=== PATIENT | female | born 1965 | race Caucasian/White ===

== ENCOUNTER 2016-10-13 10:39 | Emergency (ER) | payer OTHER ==
[~2016-10-13] VITALS: Ht 157.5 cm; Wt 80.0 kg
[~2016-10-13 10:39] MED LIST: ALBU0.086 INH; ALBU1AER INH; ALBU6.7H INH; ALPR-138 PO; PRED20 PO; SYMB80AE INH; SYMBICORT INH
[2016-10-13 10:51] VITALS: BP 167/111; PULSE 81; RESP 16; TEMP 98.8; O2SAT 98
[2016-10-13 11:06] LABS: BLOOD, URINE TRACE (NEG); GLUCOSE,URINE NEG (NEG); KETONE, URINE NEG (NEG); NITRITE,URINE NEG (NEG)
[2016-10-13 11:10] LABS: METHOD OF COLLECTION CLEAN CATCH
[2016-10-13 11:11] LABS: URINE COLOR YELLOW (YELLW/STRAW)
[2016-10-13 11:12] LABS: BACTERIA, URINE MOD /hpf; COMMENT (UR) CULTURE INDICATED; CULTURE IF INDICATED CULTURE INDICATED; SQUAMOUS EPITHELIAL CELL URINE > 8 /hpf (0-5)
[2016-10-13] MEDS ORDERED: FLUT1SPR5 EACH NARE (11:14)
[2016-10-13] MEDS ORDERED: THYROID MED (11:14)
[2016-10-13] MEDS ORDERED: HTN MED (11:14)
[2016-10-13] MEDS ORDERED: [UNRECOGNIZED DRUG - OTHER] (11:14)
[2016-10-13] MEDS ORDERED: MONT10TA2 PO (11:14)
[2016-10-13 11:34] VITALS: BP 171/103; PULSE 86; RESP 20; O2SAT 96
[2016-10-13 12:23] VITALS: BP 170/110; PULSE 81; RESP 20; O2SAT 96
[2016-10-13] MEDS ORDERED: KETOROLAC TROMETHAMINE 30 MG/ML (IVP) VIAL IVP ONE (12:45)
[2016-10-13 13:00] LABS: AUTOMATED NEUTROPHIL # 4.7 TH/MM3 (1.8-7.7); BASOPHIL % 0.7 % (0.0-2.0); EOSINOPHIL # 0.2 TH/MM3 (0-0.4); EOSINOPHIL % 2.8 % (0.0-4.0); HEMO FLAGS DIFF FINAL; LYMPH % 24.1 % (9.0-44.0); LYMPHOCYTE # 1.7 TH/MM3 (1.0-4.8); MEAN CORPUSCULAR HEMOGLOBIN 29.8 PG (27.0-34.0); MEAN CORPUSCULAR HGB CONC 34.3 % (32.0-36.0); MONO % 4.3 % (0.0-8.0); NEUT % 68.1 % (16.0-70.0); PLATELET COUNT 208 TH/MM3 (150-450); RED BLOOD COUNT 4.83 MIL/MM3 (4.00-5.30); RED CELL DISTRIBUTION WIDTH 12.6 % (11.6-17.2); WHITE BLOOD COUNT 6.9 TH/MM3 (4.0-11.0)
[2016-10-13 13:01] VITALS: O2SAT 99
[2016-10-13 13:09] LABS: CHLORIDE 106 MEQ/L (98-107); POTASSIUM 3.9 MEQ/L (3.5-5.1); SODIUM (NA) 141 MEQ/L (136-145)
--- NOTE | 2016-10-13 13:10 | PD ---
HPI Chief Complaint: Back/ Neck Pain or Injury Time Seen by Provider: 12:36 Travel History International Travel<30 days: No Contact w/Intl Traveler<30days: No Traveled to known affect area: No History of Present Illness HPI 51-year-old female complains of low back pain and left low quadrant abdominal pain. Patient states that she has history of chronic back pain however she has increasing low back pain for the past 2 weeks. Patient denies any recent injury. Patient denies dysuria or frequency. Patient denies any vaginal discharge or bleeding. Patient denies any focal weakness or numbness of extremity. Patient status post hysterectomy with multiple reconstruction surgery subsequently. Patient has history hypertension however did not take her blood pressure medications last night. PFSH Past Medical History Arthritis: No Asthma: Yes Autoimmune Disease: No Blood Disorders: No Anxiety: Yes Depression: No Heart Rhythm Problems: No Cancer: No Cardiovascular Problems: Yes (htn on meds) High Cholesterol: No Chemotherapy: No Chest Pain: No Congestive Heart Failure: No COPD: No Cerebrovascular Accident: No Diabetes: No Diminished Hearing: No Endocrine: No Gastrointestinal Disorders: No GERD: No Glaucoma: No Genitourinary: No Headaches: No Hepatitis: No Hiatal Hernia: No Hypertension: No Immune Disorder: No Kidney Stones: No Medical other: Yes (LEFT STENT REMOVAL 05/14/10) Musculoskeletal: Yes Neurologic: No Psychiatric: Yes Reproductive: No Respiratory: Yes (ASTHMA) Migraines: No Myocardial Infarction: No Radiation Therapy: No Renal Failure: No Seizures: No Sickle Cell Disease: No Sleep Apnea: No Thyroid Disease: No Ulcer: No ?: Not : 2 Para: 2 Tubal Ligation: Yes Past Surgical History Abdominal Surgery: No AICD: No Appendectomy: No Arteriovenous Shunt: No Cardiac Surgery: No Cholecystectomy: No Ear Surgery: No Endocrine Surgery: No Eye Surgery: No Genitourinary Surgery: Yes (NEPH TUBES, ureter re implantation bilat. ) Gynecologic Surgery: Yes (CYST REMOVED LEFT BREAST VAGINAL HYSTERECTOMY, TUGAL LIGATION) Hysterectomy: Yes Insulin Pump: No Joint Replacement: No Neurologic Surgery: No Oral Surgery: No Pacemaker: No Thoracic Surgery: No Other Surgery: Yes Social History Alcohol Use: Yes (OCCASIONAL BEERS) Tobacco Use: No Substance Use: No Allergies-Medications (Allergen,Severity, Reaction): Coded Allergies: Contrast Media (Verified Allergy, Unknown, 10/13/16) Reported Meds & Prescriptions Reported Meds & Active Scripts Active Reported Flonase Allergy Relief Nasal [place] (Fluticasone Nasal [place]) 50 Mcg/Act [place] Unknown Dose EACH NARE BID [Thyroid Med] Unknown Dose Singulair (Montelukast Sodium) 10 Mg Tab 10 Mg PO HS [Anuity] [Htn Med] Unknown Dose Review of Systems General / Constitutional: No: Fever Eyes: No: Visual changes HENT: No: Headaches Cardiovascular: No: Chest Pain or Discomfort Respiratory: No: Shortness of Breath Gastrointestinal: Positive: Abdominal Pain Genitourinary: No: Dysuria Musculoskeletal: No: Pain Skin: No Rash Neurologic: No: Weakness Psychiatric: No: Depression Endocrine: No: Polydipsia Hematologic/Lymphatic: No: Easy Bruising Physical Exam Narrative GENERAL: Well-nourished, well-developed patient. SKIN: Warm and dry. HEAD: Normocephalic. EYES: No scleral icterus. No injection or drainage. NECK: Supple, trachea midline. No JVD or lymphadenopathy. CARDIOVASCULAR: Regular rate and rhythm without murmurs, gallops, or rubs. RESPIRATORY: Breath sounds equal bilaterally. No accessory muscle use. GASTROINTESTINAL: Abdomen soft, nondistended. Patient has mild tenderness on palpation left lower quadrant of the abdomen. No rebound tenderness. No mass. MUSCULOSKELETAL: No cyanosis, or edema. BACK: Mild tenderness on palpation lower lumbar area, without obvious deformity. No CVA tenderness. Negative straight leg raising. Neurologic exam normal. Data Data Last Documented VS Vital Signs Date Time Temp Pulse Resp B/P Pulse Ox O2 Delivery O2 Flow Rate FiO2 10/13/16 14:32 69 18 159/93 98 10/13/16 10:51 98.8 Orders Urinalysis - C+S If Indicated (10/13/16 10:55) Urine Culture (10/13/16 11:00) Complete Blood Count With Diff (10/13/16 12:43) Comprehensive Metabolic Panel (10/13/16 12:43) Ct Abd/Pel W/O Iv Contrast (10/13/16 12:43) Iv Access Insert/Monitor (10/13/16 12:43) Ecg Monitoring (10/13/16 12:43) Oximetry (10/13/16 12:43) Ketorolac Inj (Toradol Inj) (10/13/16 12:45) Labs Laboratory Tests Test 10/13/16 10/13/16 11:00 12:50 Urine Collection Type CLEAN CATCH Urine Color YELLOW Urine Turbidity SLIGHT Urine pH 7.0 Urine Specific [place] 1.020 Urine Protein NEG mg/dL Urine Glucose (UA) NEG mg/dL Urine Ketones NEG mg/dL Urine Occult Blood TRACE Urine Nitrite NEG Urine Bilirubin NEG Urine Leukocyte Esterase SMALL Urine RBC 4-9 /hpf Urine WBC 20-24 /hpf Urine Squamous Epithelial > 8 /hpf Cells Urine Bacteria MOD /hpf Microscopic Urinalysis Comment CULTURE INDICATED Urine Collection Time 11:00 White Blood Count 6.9 TH/MM3 Red Blood Count 4.83 MIL/MM3 Hemoglobin 14.4 GM/DL Hematocrit 42.0 % Mean Corpuscular Volume 87.0 FL Mean Corpuscular Hemoglobin 29.8 PG Mean Corpuscular Hemoglobin 34.3 % Concent Red Cell Distribution Width 12.6 % Platelet Count 208 TH/MM3 Mean Platelet Volume 8.8 FL Neutrophils (%) (Auto) 68.1 % Lymphocytes (%) (Auto) 24.1 % Monocytes (%) (Auto) 4.3 % Eosinophils (%) (Auto) 2.8 % Basophils (%) (Auto) 0.7 % Neutrophils # (Auto) 4.7 TH/MM3 Lymphocytes # (Auto) 1.7 TH/MM3 Monocytes # (Auto) 0.3 TH/MM3 Eosinophils # (Auto) 0.2 TH/MM3 Basophils # (Auto) 0.0 TH/MM3 CBC Comment DIFF FINAL Differential Comment Sodium Level 141 MEQ/L Potassium Level 3.9 MEQ/L Chloride Level 106 MEQ/L Carbon Dioxide Level 28.3 MEQ/L Anion Gap 7 MEQ/L Blood Urea Nitrogen 13 MG/DL Creatinine 0.93 MG/DL Estimat Glomerular Filtration 63 ML/MIN Rate Random Glucose 90 MG/DL Calcium Level 8.5 MG/DL Total Bilirubin 0.3 MG/DL Aspartate Amino Transf 15 U/L (AST/SGOT) Alanine Aminotransferase 23 U/L (ALT/SGPT) Alkaline Phosphatase 61 U/L Total Protein 7.6 GM/DL Albumin 3.5 GM/DL [facility] Medical Decision Making Medical Screen Exam Complete: Yes Emergency Medical Condition: Yes Interpretation(s) 1453 PM. CBC within normal limit. CMP within normal limit. UA positive with WBC and bacteria. 1509 PM. Last Impressions Abdomen/Pelvis CT 10/13/16 1243 Signed Impressions: Service Date/Time: Thursday, October 13, 2016 13:55 - CONCLUSION: 1. Mild hydronephrosis on the left with two tiny calcified proximal ureter calculi measuring 3 and 2 mm raising the possibility of mild obstructive uropathy. 2. Multiple calcified non-obstructing left renal calculi with the largest measuring 12 mm in the lower pole. 3. Cortical scarring within the upper pole of the left kidney. 4. The left ureter appears to traverse diagonally towards the midline raising the possibility of reimplantation in the region of the dome of the bladder. Clinical correlation is recommended. 5. Uncomplicated colonic diverticulosis. 6. Mild hepatomegaly. 7. Mild scoliosis and degenerative changes involving the lumbar spine. 8. Grade I anterolisthesis of L5 in relation to S1 is noted with bilateral pars defects noted. 9. Small midline ventral abdominal wall hernia containing only fat. Sahil Samson MD Differential Diagnosis Differential diagnosis including acute exacerbation of back pain, UTI, pyelonephritis, nephrolithiasis, colitis. Narrative Course 51-year-old female with left low quadrant abdominal pain and low back pain. Diagnosis Primary Impression: Nephrolithiasis Additional Impression: UTI (urinary tract infection) Qualified Code: N30.00 - Acute cystitis without hematuria Patient Instructions: General Instructions Additional Instructions: Take medications as directed. Follow-up with urologist and personal physician. Return if intractable pain, fever, persistent vomiting. Med/Other Pt SpecificInfo: Prescription(s) given Scripts Hydrocodone-Acetaminophen ([place])5-325 mg Tab1 Tab PO Q6H PRN (PAIN) #20 TAB Ref 0 Prov:Stephen Ellison MD 10/13/16 Tamsulosin (Flomax)0.4 Mg Cap0.4 Mg PO HS #10 CAP Ref 0 Prov:Stephen Ellison MD 10/13/16 Sulfamethoxazole-Trimethoprim (Bactrim DS)800-160 Mg Tab1 Tab PO BID #14 TAB Prov:Stephen Ellison MD 10/13/16 Disposition: 01 DISCHARGE HOME Condition: Stable Stephen Ellison MD Oct 13, 2016 13:09
[2016-10-13 13:13] LABS: ANION GAP 7 MEQ/L (5-15); BICARBONATE 28.3 MEQ/L (21.0-32.0); BLOOD UREA NITROGEN 13 MG/DL (7-18)
[2016-10-13 13:16] LABS: ALT (GPT) 23 U/L (10-53); AST (GOT) 15 U/L (15-37); GLOMERULAR FILTRATION RATE 63 ML/MIN (>89)
[2016-10-13 13:18] LABS: TOTAL BILIRUBIN ADULT 0.3 MG/DL (0.2-1.0)
[2016-10-13 13:19] LABS: ALKALINE PHOSPHATASE 61 U/L (45-117)
[2016-10-13 13:24] VITALS: BP 183/99; PULSE 78; RESP 20; O2SAT 99
[2016-10-13 14:32] VITALS: BP 159/93; PULSE 69; RESP 18; O2SAT 98
--- NOTE | 2016-10-13 14:46 | RADHPO ---
EXAM DATE/TIME: 10/13/2016 13:55 [facility] COMPARISON: No previous studies available for comparison. INDICATIONS : Left flank pain. ORAL CONTRAST: No oral contrast ingested. RADIATION DOSE: 24.19 CTDIvol (mGy) MEDICAL HISTORY : Hypertension. SURGICAL HISTORY : Hysterectomy. ENCOUNTER: Initial ACUITY: 2 weeks PAIN SCALE: 3/10 LOCATION: Left flank TECHNIQUE: Volumetric scanning of the abdomen and pelvis was performed. Using automated exposure control and ad justment of the mA and/or kV according to patient size, radiation dose was kept as low as reasonably achievable to obtain optimal diagnostic quality images. FINDINGS: There is evidence of several calcified non-obstructing left renal calculi with the largest measuring 12 mm in the lower pole. Cortical scarring is noted involving the left upper pole. There is mild hy dronephrosis on the left as well as two tiny calcified left proximal ureteral calculi measuring 3 and 2 mm raising the possibility of mild obstructive uropathy on the left. The left ureter appears to t raverse diagonally towards the midline raising the possibility of reimplantation of the left ureter i n the region of the bladder dome. Clinical correlation is recommended. Evaluation of the solid orga ns of the abdomen is limited by the lack of intravenous contrast. There is some mild hepatomegaly. There is a calcification within the lateral dome of the liver consistent with probable granulomatous change. Uncomplicated colonic diverticulosis is noted. The appendix is normal. The urinary bladder is unremarkable. There is a ventral abdominal wall hernia which contains only fat in the midline. Mild scoliosis and degenerative changes are noted involving the lumbar spine. Grade I anterolisthesi s of L5 in relation to S1 is noted with bilateral pars defects noted. CONCLUSION: 1. Mild hydronephrosis on the left with two tiny calcified proximal ureter calculi measuring 3 and 2 mm raising the possibility of mild obstructive uropathy. 2. Multiple calcified non-obstructing left renal calculi with the largest measuring 12 mm in the lowe r pole. 3. Cortical scarring within the upper pole of the left kidney. 4. The left ureter appears to traverse diagonally towards the midline raising the possibility of reim plantation in the region of the dome of the bladder. Clinical correlation is recommended. 5. Uncomplicated colonic diverticulosis. 6. Mild hepatomegaly. 7. Mild scoliosis and degenerative changes involving the lumbar spine. 8. Grade I anterolisthesis of L5 in relation to S1 is noted with bilateral pars defects noted. 9. Small midline ventral abdominal wall hernia containing only fat. Sahil Samson MD on October 13, 2016 at 14:06 Board Certified Radiologist. This report was verified electronically.
[2016-10-13] MEDS ORDERED: BACT800T5 PO (15:12)
[2016-10-13] MEDS ORDERED: TAMS5CAP PO (15:12)
[2016-10-13] MEDS ORDERED: NORC5TAB PO (15:12)
== END 2016-10-13 15:31 | disposition home or self-care (01) ==
LOC: PHED 10:39
DX: N20.0 Calculus of kidney (principal); N39.0 Urinary tract infection, site not specified; I10 Essential (primary) hypertension; F41.9 Anxiety disorder, unspecified
CPT/HCPCS: 74176; 80053; 81001; 85025; 87077; 87086; 87186; 96374; 99284; J1885

== ENCOUNTER 2017-04-09 11:28 | Emergency (ER) | payer OTHER ==
[~2017-04-09] VITALS: Ht 157.5 cm; Wt 82.0 kg
[~2017-04-09 11:28] MED LIST changes: -ALBU0.086 INH; -ALBU1AER INH; -ALBU6.7H INH; -ALPR-138 PO; +BACT800T5 PO; +FLUT1SPR5 EACH NARE; +HTN MED; +MONT10TA2 PO; +NORC5TAB PO; -PRED20 PO; -SYMB80AE INH; -SYMBICORT INH; +TAMS5CAP PO; +THYROID MED; +[UNRECOGNIZED DRUG - OTHER]
[2017-04-09] MEDS ORDERED: LEVO50TA4 PO (11:42)
[2017-04-09] MEDS ORDERED: FLUT1INH3 INH (11:42)
[2017-04-09] MEDS ORDERED: LOSA50TA PO (11:42)
[2017-04-09] MEDS ORDERED: VENTAER INH (11:42)
[2017-04-09 11:43] VITALS: BP 171/105; PULSE 77; RESP 16; TEMP 98; O2SAT 98
[2017-04-09] MEDS ORDERED: ONDANSETRON HCL 4 MG/2 ML VIAL IV PUSH ONE (12:00)
[2017-04-09] MEDS ORDERED: MORPHINE SULFATE 4 MG/ML INJ IV PUSH ONE (12:00)
--- NOTE | 2017-04-09 12:21 | PD ---
HPI Chief Complaint: Hip Injury Time Seen by Provider: 12:00 Travel History International Travel<30 days: No Contact w/Intl Traveler<30days: No Traveled to known affect area: No History of Present Illness HPI 52-year-old female presents for evaluation of right leg pain. Prior to arrival she slipped in her garage and fell, landing on her torso. No loss of consciousness or head trauma. She has been having pain in her right thigh since then. The pain is an aching pain which is constant, worse with any sort of movement of the right thigh. She received or feeding prior to arrival. Denies any injury to the torso, upper extremities, neck or back. She has no other complaints at this time. PFSH Past Medical History Arthritis: No Asthma: Yes Autoimmune Disease: No Blood Disorders: No Anxiety: Yes Depression: No Heart Rhythm Problems: No Cancer: No Cardiovascular Problems: Yes (htn on meds) High Cholesterol: No Chemotherapy: No Chest Pain: No Congestive Heart Failure: No COPD: No Cerebrovascular Accident: No Diabetes: No Diminished Hearing: No Endocrine: No Gastrointestinal Disorders: No GERD: No Glaucoma: No Genitourinary: No Headaches: No Hepatitis: No Hiatal Hernia: No Hypertension: No Immune Disorder: No Kidney Stones: No Medical other: Yes (LEFT STENT REMOVAL 05/14/10) Musculoskeletal: Yes Neurologic: No Psychiatric: Yes Reproductive: No Respiratory: Yes Migraines: No Myocardial Infarction: No Radiation Therapy: No Renal Failure: No Seizures: No Sickle Cell Disease: No Sleep Apnea: No Thyroid Disease: No Ulcer: No Tetanus Vaccination: > 5 Years Influenza Vaccination: No ?: Not : 2 Para: 2 Tubal Ligation: Yes Past Surgical History Abdominal Surgery: No AICD: No Appendectomy: No Arteriovenous Shunt: No Cardiac Surgery: No Cholecystectomy: No Ear Surgery: No Endocrine Surgery: No Eye Surgery: No Genitourinary Surgery: Yes (NEPH TUBES, ureter re implantation bilat. ) Gynecologic Surgery: Yes (CYST REMOVED LEFT BREAST VAGINAL HYSTERECTOMY, TUGAL LIGATION) Hysterectomy: Yes Insulin Pump: No Joint Replacement: No Neurologic Surgery: No Oral Surgery: No Pacemaker: No Thoracic Surgery: No Other Surgery: Yes Social History Alcohol Use: Yes (OCCASIONAL BEERS) Tobacco Use: No Substance Use: No Allergies-Medications (Allergen,Severity, Reaction): Coded Allergies: Contrast Media (Verified Allergy, Unknown, 04/09/17) Reported Meds & Prescriptions Reported Meds & Active Scripts Active Baclofen 10 Mg Tab 10 Mg PO Q8HR PRN 7 Days Lortab (Hydrocodone-Acetaminophen) 5-325 Mg Tab 1 Tab PO Q6H PRN Ibuprofen 800 Mg Tab 800 Mg PO Q6HR PRN Reported Ventolin Hfa 18 GM Inh (Albuterol Sulfate) 90 Mcg/Act Aer 2 Puff INH Q4-6H PRN Arnuity Ellipta (Fluticasone Furoate (Inhalatio) 100 Mcg/Act Inh 1 Puff INH HS Levothyroxine (Levothyroxine Sodium) 50 Mcg Tab 50 Mcg PO DAILY Losartan (Losartan Potassium) 50 Mg Tab 50 Mg PO DAILY Flonase Nasal [place] (Fluticasone Nasal [place]) 50 Mcg/Act [place] Unknown Dose EACH NARE BID Review of Systems Except as stated in HPI: all other systems reviewed are Neg Physical Exam Narrative GENERAL: Well-developed well-nourished female who appears uncomfortable on initial examination. SKIN: Warm and dry. There is no obvious bruising or soft tissue swelling on initial examination. HEAD: Atraumatic. Normocephalic. EYES: Pupils equal and round. No scleral icterus. No injection or drainage. ENT: No nasal bleeding or discharge. Mucous membranes pink and moist. NECK: Trachea midline. No JVD. CARDIOVASCULAR: Regular rate and rhythm. No murmur appreciated. RESPIRATORY: No accessory muscle use. Clear to auscultation. Breath sounds equal bilaterally. GASTROINTESTINAL: Abdomen soft, non-tender, nondistended. Hepatic and splenic margins not palpable. MUSCULOSKELETAL: No obvious deformities. There is no rotation or shortening of the right leg. She is tender to palpation in the right thigh diffusely. There is no soft tissue swelling, the compartments are soft. She has pain with any sort of movement of the right hip or knee. She has no tenderness to palpation to the right calf or tibia or ankle or foot. NEUROLOGICAL: Awake and alert. No obvious cranial nerve deficits. Motor grossly within normal limits. Normal speech. PSYCHIATRIC: Appropriate mood and affect; insight and judgment normal. Data Data Last Documented VS Vital Signs Date Time Temp Pulse Resp B/P Pulse Ox O2 Delivery O2 Flow Rate FiO2 04/09/17 11:50 Room Air 04/09/17 11:43 98.0 77 16 171/105 98 Orders Femur (Ap & Lat/2vws) (04/09/17 ) Pelvis, Ap Only (Routine) (04/09/17 ) Complete Blood Count With Diff (04/09/17 11:56) Basic Metabolic Panel (Bmp) (04/09/17 11:56) Act Partial Throm Time (Ptt) (04/09/17 11:56) Prothrombin Time / Inr (Pt) (04/09/17 11:56) Morphine Inj (Morphine Inj) (04/09/17 12:00) Ondansetron Inj (Zofran Inj) (04/09/17 12:00) Ketorolac Inj (Toradol Inj) (04/09/17 13:00) Ct Femur W/O Iv Contrast (04/09/17 ) Orphenadrine Inj (Norflex Inj) (04/09/17 13:15) Crutches (04/09/17 14:31) Labs Laboratory Tests Test 04/09/17 12:00 White Blood Count 6.7 TH/MM3 Red Blood Count 4.78 MIL/MM3 Hemoglobin 13.9 GM/DL Hematocrit 42.4 % Mean Corpuscular Volume 88.6 FL Mean Corpuscular Hemoglobin 29.0 PG Mean Corpuscular Hemoglobin 32.7 % Concent Red Cell Distribution Width 13.9 % Platelet Count 194 TH/MM3 Mean Platelet Volume 9.6 FL Neutrophils (%) (Auto) 72.3 % Lymphocytes (%) (Auto) 19.0 % Monocytes (%) (Auto) 6.6 % Eosinophils (%) (Auto) 1.5 % Basophils (%) (Auto) 0.6 % Neutrophils # (Auto) 4.8 TH/MM3 Lymphocytes # (Auto) 1.3 TH/MM3 Monocytes # (Auto) 0.4 TH/MM3 Eosinophils # (Auto) 0.1 TH/MM3 Basophils # (Auto) 0.0 TH/MM3 CBC Comment DIFF FINAL Differential Comment Prothrombin Time 10.0 SEC Prothromb Time International 0.9 RATIO Ratio Activated Partial 25.9 SEC Thromboplast Time Sodium Level 138 MEQ/L Potassium Level 3.8 MEQ/L Chloride Level 106 MEQ/L Carbon Dioxide Level 24.8 MEQ/L Anion Gap 7 MEQ/L Blood Urea Nitrogen 14 MG/DL Creatinine 0.79 MG/DL Estimat Glomerular Filtration 76 ML/MIN Rate Random Glucose 96 MG/DL Calcium Level 8.5 MG/DL [facility] Medical Decision Making Medical Screen Exam Complete: Yes Emergency Medical Condition: Yes Medical Record Reviewed: Yes Differential Diagnosis Right leg strain, contusion, femur fracture, compartment syndrome Narrative Course Plan is for x-ray imaging of the femur, pelvis. She'll be given additional pain medication. The patient's x-ray imaging is negative. I attempted to in with the patient however she was unable to even sit on the edge of the bed without severe pain in her posterior medial right thigh. This was after 2 doses of morphine. She will be given Toradol and Norflex as well. CT imaging reveals no acute abnormalities. After the administration of Toradol and Norflex she reports significant improvement in symptoms. I suspect a strain to the thigh muscles given the mechanism of injury and examination. She' ll be discharged with a short course of ibuprofen, baclofen and Lortab. She'll be given crutches. She will follow up with her primary care physician. Diagnosis Primary Impression: Strain of right hip and thigh Qualified Code: S76.011A - Strain of right hip and thigh, initial encounter Additional Instructions: Medication as prescribed. Do not drive or drink alcohol when taking baclofen and Lortab. Follow-up with primary care physician next week. Return for any emergent medical conditions. Med/Other Pt SpecificInfo: Prescription(s) given Scripts Baclofen 10 Mg Tab10 Mg PO Q8HR PRN (MUSCLE SPASM) 7 Days Ref 0 Prov:Stephen Ellison MD 04/09/17 Hydrocodone-Acetaminophen (Lortab)5-325 Mg Tab1 Tab PO Q6H PRN (PAIN) #20 TAB Ref 0 Prov:Stephen Ellison MD 04/09/17 Ibuprofen 800 Mg [id number] Mg PO Q6HR PRN (PAIN) #40 TAB Ref 0 Prov:Stephen Ellison MD 04/09/17 Disposition: 01 DISCHARGE HOME Condition: Stable Carlos Siu Apr 09, 2017 12:21
[2017-04-09 12:43] LABS: AUTOMATED NEUTROPHIL # 4.8 TH/MM3 (1.8-7.7); BASOPHIL % 0.6 % (0.0-2.0); EOSINOPHIL # 0.1 TH/MM3 (0-0.4); EOSINOPHIL % 1.5 % (0.0-4.0); HEMATOCRIT 42.4 % (35.0-46.0); HEMO FLAGS DIFF FINAL; LYMPHOCYTE # 1.3 TH/MM3 (1.0-4.8); MEAN CELL VOLUME 88.6 FL (80.0-100.0); MEAN CORPUSCULAR HGB CONC 32.7 % (32.0-36.0); MONO % 6.6 % (0.0-8.0); NEUT % 72.3 % (16.0-70.0); PLATELET COUNT 194 TH/MM3 (150-450); RED BLOOD COUNT 4.78 MIL/MM3 (4.00-5.30); RED CELL DISTRIBUTION WIDTH 13.9 % (11.6-17.2); WHITE BLOOD COUNT 6.7 TH/MM3 (4.0-11.0)
[2017-04-09 12:46] LABS: APTT (PATIENT) 25.9 SEC (24.3-30.1); INTERNATIONAL NORMALIZED RATIO 0.9 RATIO
--- NOTE | 2017-04-09 12:46 | RADRPT ---
EXAM DATE/TIME: 04/09/2017 12:39 [facility] COMPARISON: No previous studies available for comparison. INDICATIONS : Right hip pain post fall. MEDICAL HISTORY : None. SURGICAL HISTORY : None. ENCOUNTER: Initial ACUITY: 1 day PAIN SCORE: 10/10 LOCATION: Right Hip FINDINGS: A single frontal view of the pelvis demonstrates no evidence of fracture. The bony pelvic ring is in tact. Bony mineralization is normal. The soft tissues are intact. CONCLUSION: No acute disease. Peng Correia MD FACR on April 09, 2017 at 12:45 Board Certified Radiologist. This report was verified electronically.
--- NOTE | 2017-04-09 12:49 | RADRPT ---
EXAM DATE/TIME: 04/09/2017 12:42 [facility] COMPARISON: No previous studies available for comparison. INDICATIONS : Right proximal femur pain post fall. MEDICAL HISTORY : None. SURGICAL HISTORY : None. ENCOUNTER: Initial ACUITY: 1 day PAIN SCORE: 10/10 LOCATION: Right Femur FINDINGS: There is probable prominent vascular groove midshaft of the femur without definite fracture. CONCLUSION: Negative for fracture. CT scan may be of benefit if there is strong clinical concern of fracture. Peng Correia MD FACR on April 09, 2017 at 12:45 Board Certified Radiologist. This report was verified electronically.
[2017-04-09 12:58] LABS: BICARBONATE 24.8 MEQ/L (21.0-32.0); POTASSIUM 3.8 MEQ/L (3.5-5.1)
[2017-04-09] MEDS ORDERED: KETOROLAC TROMETHAMINE 30 MG/ML (IVP) VIAL IV PUSH ONE (13:00)
[2017-04-09] MEDS ORDERED: ORPHENADRINE INJ 60 MG/2 ML AMP IV ONE (13:15)
--- NOTE | 2017-04-09 14:01 | RADRPT ---
EXAM DATE/TIME: 04/09/2017 13:37 [facility] COMPARISON: No previous studies available for comparison. INDICATIONS : Fall today. Right leg pain. RADIATION DOSE: 44.21 CTDIvol (mGy) MEDICAL HISTORY : None SURGICAL HISTORY : None. ENCOUNTER: Initial ACUITY: 1 day PAIN SCALE: 10/10 LOCATION: Right leg TECHNIQUE: Volumetric scanning of the femur was performed. Using automated exposure control and adjustment of t he mA and/or kV according to patient size, radiation dose was kept as low as reasonably achievable to obtain optimal diagnostic quality images. DICOM format image data is available electronically for review and comparison. FINDINGS: BONES: No evidence of fracture. Alignment is within normal limits. JOINTS: No evidence of joint narrowing or effusion. SOFT TISSUES: Muscles, tendons, and neurovascular structures are grossly unremarkable. No evidence of mass, organiz ed fluid collection, or foreign body CONCLUSION: Negative for fracture. Peng Correia MD FACR on April 09, 2017 at 13:58 Board Certified Radiologist. This report was verified electronically.
[2017-04-09] MEDS ORDERED: BACL10TA PO (14:28)
[2017-04-09] MEDS ORDERED: IBUP800T23 PO (14:28)
[2017-04-09] MEDS ORDERED: HYDR-3533 PO (14:28)
[2017-04-09 14:37] VITALS: BP 162/82
== END 2017-04-09 15:14 | disposition home or self-care (01) ==
LOC: NEPC 11:28
DX: S76.011A Strain of muscle, fascia and tendon of right hip, initial encounter (principal); F41.9 Anxiety disorder, unspecified; I10 Essential (primary) hypertension; J45.909 Unspecified asthma, uncomplicated; W01.0XXA Fall on same level from slipping, tripping and stumbling without subsequent striking against object, initial encounter; Z79.899 Other long term (current) drug therapy
CPT/HCPCS: 72170; 73552; 73700; 80048; 85025; 85610; 85730; 96374; 96375; 99285; E0113; J1885; J2270; J2360; J2405

== ENCOUNTER 2018-01-05 17:58 | Emergency (ER) | payer OTHER ==
[~2018-01-05] VITALS: Ht 157.5 cm; Wt 78.0 kg
[~2018-01-05 17:58] MED LIST changes: +BACL10TA PO; -BACT800T5 PO; +FLUT1INH3 INH; -HTN MED; +HYDR-3533 PO; +IBUP1TAB7 PO; +LEVO50TA4 PO; +LOSA50TA PO; -MONT10TA2 PO; -NORC5TAB PO; -TAMS5CAP PO; -THYROID MED; +VENTAER INH; -[UNRECOGNIZED DRUG - OTHER]
[2018-01-05 18:08] VITALS: BP 198/113; PULSE 90; RESP 17; TEMP 98.3; O2SAT 98
[2018-01-05 20:23] VITALS: BP 198/109; PULSE 91; RESP 20; O2SAT 98
[2018-01-05] MEDS ORDERED: cloNIDine HCL 0.1 MG TAB PO ONE (20:30)
[2018-01-05] MEDS ORDERED: ACETAMINOPHEN 325 MG TAB PO ONE (20:30)
[2018-01-05] MEDS ORDERED: LORazepam 2 MG/ML VIAL IV PUSH ONE (20:30)
[2018-01-05 20:58] LABS: AUTOMATED NEUTROPHIL # 5.2 TH/MM3 (1.8-7.7); BASOPHIL # 0.1 TH/MM3 (0-0.2); EOSINOPHIL # 0.3 TH/MM3 (0-0.4); HEMATOCRIT 43.6 % (35.0-46.0); HEMOGLOBIN 14.7 GM/DL (11.6-15.3); LYMPH % 26.5 % (9.0-44.0); LYMPHOCYTE # 2.3 TH/MM3 (1.0-4.8); MEAN CELL VOLUME 88.2 FL (80.0-100.0); MEAN CORPUSCULAR HEMOGLOBIN 29.7 PG (27.0-34.0); MEAN CORPUSCULAR HGB CONC 33.7 % (32.0-36.0); MEAN PLATELET VOLUME 9.5 FL (7.0-11.0); MONOCYTE # 0.6 TH/MM3 (0-0.9); NEUT % 61.5 % (16.0-70.0); PLATELET COUNT 227 TH/MM3 (150-450); RED BLOOD COUNT 4.94 MIL/MM3 (4.00-5.30); RED CELL DISTRIBUTION WIDTH 14.3 % (11.6-17.2); WHITE BLOOD COUNT 8.5 TH/MM3 (4.0-11.0)
[2018-01-05 21:08] LABS: ALT (GPT) 28 U/L (10-53)
[2018-01-05 21:10] LABS: ALKALINE PHOSPHATASE 63 U/L (45-117); TOTAL BILIRUBIN ADULT 0.2 MG/DL (0.2-1.0)
[2018-01-05 21:18] LABS: ALBUMIN 3.8 GM/DL (3.4-5.0); AST (GOT) 24 U/L (15-37); BICARBONATE 26.5 MEQ/L (21.0-32.0); BLOOD UREA NITROGEN 18 MG/DL (7-18); CALCIUM 9.2 MG/DL (8.5-10.1); CHLORIDE 105 MEQ/L (98-107); CREATININE 1.01 MG/DL (0.50-1.00); GLOMERULAR FILTRATION RATE 57 ML/MIN (>89); GLUCOSE,RANDOM 83 MG/DL (74-106); SODIUM (NA) 139 MEQ/L (136-145)
--- NOTE | 2018-01-05 21:32 | RADRPT ---
EXAM DATE/TIME: 01/05/2018 21:24 [facility] COMPARISON: No previous studies available for comparison. INDICATIONS : Patient complains of headache. RADIATION DOSE: 35.38 CTDIvol (mGy) MEDICAL HISTORY : Cardiovascular disease. Hypertension. SURGICAL HISTORY : Hysterectomy. ENCOUNTER: Initial ACUITY: 1 day LOCATION: cranial TECHNIQUE: Multiple contiguous axial images were obtained of the head. Using automated exposure control and adj ustment of the mA and/or kV according to patient size, radiation dose was kept as low as reasonably a chievable to obtain optimal diagnostic quality images. DICOM format image data is available electro nically for review and comparison. FINDINGS: CEREBRUM: The ventricles are normal for age. No evidence of midline shift, mass lesion, hemorrhage or acute in farction. No extra-axial fluid collections are seen. POSTERIOR FOSSA: The cerebellum and brainstem are intact. The 4th ventricle is midline. The cerebellopontine angle i s unremarkable. EXTRACRANIAL: The visualized portion of the orbits is intact. SKULL: The calvaria is intact. No evidence of skull fracture. CONCLUSION: Negative for acute process. Peng Correia MD FACR on January 05, 2018 at 21:29 Board Certified Radiologist. This report was verified electronically.
[2018-01-05 21:36] VITALS: BP 160/84; PULSE 81; RESP 20; O2SAT 97
--- NOTE | 2018-01-05 21:37 | PD ---
HPI Chief Complaint: Hypertension Time Seen by Provider: 20:04 Travel History International Travel<30 days: No Contact w/Intl Traveler<30days: No Traveled to known affect area: No History of Present Illness HPI 52-year-old female that presents to the ED for evaluation of headache, anxiety as well as hypertension. Per patient she has had a very stressful day today and she noted that she was having a headache that feels like a pressure on the back of her head as well as on her forehead. Per patient comes and goes. She had one of her coworkers check her blood pressure and it was highly elevated in the 200s systolic. She chronically has a history of hypertension. She takes losartan per patient and has been compliant. She has been taking this medication for quite some time. She states that today she was very stressed and she does not last related. She denies any chest pain or shortness of breath. Per significant other she has been having some headaches on and off. She has attributed some of her symptoms for possible anxiety and stress that she has been dealing with a lot of stress recently and she does have a history of anxiety and used to take medications but no longer does. Per patient she no longer takes them because she no longer has them. She denies any urinary or bowel movement issues. States that the headache is 5 out of 10 and comes and goes. PFSH Past Medical History Arthritis: No Asthma: Yes Autoimmune Disease: No Blood Disorders: No Anxiety: Yes Depression: No Heart Rhythm Problems: No Cancer: No Cardiovascular Problems: Yes (htn on meds) High Cholesterol: No Chemotherapy: No Chest Pain: No Congestive Heart Failure: No COPD: No Cerebrovascular Accident: No Diabetes: No Diminished Hearing: No Endocrine: No Gastrointestinal Disorders: No GERD: No Glaucoma: No Genitourinary: No Headaches: No Hepatitis: No Hiatal Hernia: No Hypertension: Yes Immune Disorder: No Kidney Stones: No Medical other: Yes (LEFT STENT REMOVAL 05/14/10) Musculoskeletal: Yes Neurologic: No Psychiatric: Yes Reproductive: No Respiratory: Yes Migraines: No Myocardial Infarction: No Radiation Therapy: No Renal Failure: No Seizures: No Sickle Cell Disease: No Sleep Apnea: No Thyroid Disease: No Ulcer: No Tetanus Vaccination: Unknown ?: Not : 2 Para: 2 Tubal Ligation: Yes Past Surgical History Abdominal Surgery: No AICD: No Appendectomy: No Arteriovenous Shunt: No Cardiac Surgery: No Section: No Cholecystectomy: No Ear Surgery: No Endocrine Surgery: No Eye Surgery: No Genitourinary Surgery: Yes (NEPH TUBES, ureter re implantation bilat. ) Gynecologic Surgery: Yes (CYST REMOVED LEFT BREAST VAGINAL HYSTERECTOMY, TUGAL LIGATION) Hysterectomy: Yes (2008) Insulin Pump: No Joint Replacement: No Neurologic Surgery: No Oral Surgery: No Pacemaker: No Thoracic Surgery: No Other Surgery: Yes Social History Alcohol Use: Yes (OCCASIONAL BEERS) Tobacco Use: No Substance Use: No Allergies-Medications (Allergen,Severity, Reaction): Coded Allergies: diatrizoate meglumine (Unverified Allergy, Unknown, 05/18/17) gadobenic acid (Unverified Allergy, Unknown, 05/18/17) gadodiamide (Unverified Allergy, Unknown, 05/18/17) gadoteridol (Unverified Allergy, Unknown, 05/18/17) iodixanol (Unverified Allergy, Unknown, 05/18/17) iohexol (Unverified Allergy, Unknown, 05/18/17) Reported Meds & Prescriptions Reported Meds & Active Scripts Active Blood Pressure Kit/Arm Cuff 1 Mis Mis Ea .XX DIRECTED Vistaril (Hydroxyzine Pamoate) 50 Mg Cap 50 Mg PO QID PRN Clonidine (Clonidine HCl) 0.1 Mg Tab 0.1 Mg PO BID PRN Baclofen 10 Mg Tab 10 Mg PO Q8HR PRN 7 Days Lortab (Hydrocodone-Acetaminophen) 5-325 Mg Tab 1 Tab PO Q6H PRN Ibuprofen 800 Mg Tab 800 Mg PO Q6HR PRN Reported Ventolin Hfa 18 GM Inh (Albuterol Sulfate) 90 Mcg/Act Aer 2 Puff INH Q4-6H PRN Arnuity Ellipta (Fluticasone Furoate (Inhalatio) 100 Mcg/Act Inh 1 Puff INH HS Levothyroxine (Levothyroxine Sodium) 50 Mcg Tab 50 Mcg PO DAILY Losartan (Losartan Potassium) 50 Mg Tab 50 Mg PO DAILY Flonase Nasal [place] (Fluticasone Nasal [place]) 50 Mcg/Act [place] Unknown Dose EACH NARE BID Review of Systems Except as stated in HPI: all other systems reviewed are Neg Physical Exam Narrative GENERAL: SKIN: Warm and dry. HEAD: Atraumatic. Normocephalic. EYES: Pupils equal and round 4 mms reactive to light and accommodation. No scleral icterus. No injection or drainage. ENT: No nasal bleeding or discharge. Mucous membranes pink and moist. Tongue is midline. No uvula deviation. NECK: Trachea midline. No JVD. CARDIOVASCULAR: Regular rate and rhythm. No murmurs, S3, S4. RESPIRATORY: No accessory muscle use. Clear to auscultation. Breath sounds equal bilaterally. GASTROINTESTINAL: Abdomen soft, non-tender, nondistended. Hepatic and splenic margins not palpable. MUSCULOSKELETAL: Extremities without clubbing, cyanosis, or edema. No obvious deformities. Full range of motion of the upper and lower extremities bilaterally. 2+ pulses bilaterally. No lumbar, thoracic, cervical spine tenderness to palpation. NEUROLOGICAL: Awake and alert. No obvious cranial nerve deficits. Motor grossly within normal limits. Five out of 5 muscle strength in the arms and legs. Normal speech. PSYCHIATRIC: Appropriate mood and affect; insight and judgment normal. Data Data Last Documented VS Vital Signs Date Time Temp Pulse Resp B/P (MAP) Pulse Ox O2 Delivery O2 Flow Rate FiO2 01/05/18 21:36 81 20 160/84 (109) 97 Room Air 01/05/18 18:08 98.3 Orders Orders Complete Blood Count With Diff (01/05/18 18:10) Comprehensive Metabolic Panel (01/05/18 18:10) Troponin I (01/05/18 20:25) Ckmb (Isoenzyme) Profile (01/05/18 20:25) Electrocardiogram (01/05/18 ) Ct Brain W/O Iv Contrast(Rout) (01/05/18 ) Clonidine (Catapres) (01/05/18 20:30) Acetaminophen (Tylenol) (01/05/18 20:30) Lorazepam Inj (Ativan Inj) (01/05/18 20:30) CKMB (01/05/18 21:55) CKMB% (01/05/18 21:55) Ed Discharge Order (01/05/18 22:53) Labs Laboratory Tests Test 01/05/18 19:28 01/05/18 21:55 White Blood Count 8.5 TH/MM3 Red Blood Count 4.94 MIL/MM3 Hemoglobin 14.7 GM/DL Hematocrit 43.6 % Mean Corpuscular Volume 88.2 FL Mean Corpuscular Hemoglobin 29.7 PG Mean Corpuscular Hemoglobin Concent 33.7 % Red Cell Distribution Width 14.3 % Platelet Count 227 TH/MM3 Mean Platelet Volume 9.5 FL Neutrophils (%) (Auto) 61.5 % Lymphocytes (%) (Auto) 26.5 % Monocytes (%) (Auto) 7.0 % Eosinophils (%) (Auto) 4.0 % Basophils (%) (Auto) 1.0 % Neutrophils # (Auto) 5.2 TH/MM3 Lymphocytes # (Auto) 2.3 TH/MM3 Monocytes # (Auto) 0.6 TH/MM3 Eosinophils # (Auto) 0.3 TH/MM3 Basophils # (Auto) 0.1 TH/MM3 CBC Comment DIFF FINAL Differential Comment Blood Urea Nitrogen 18 MG/DL Creatinine 1.01 MG/DL Random Glucose 83 MG/DL Total Protein 8.0 GM/DL Albumin 3.8 GM/DL Calcium Level 9.2 MG/DL Alkaline Phosphatase 63 U/L Aspartate Amino Transf (AST/SGOT) 24 U/L Alanine Aminotransferase (ALT/SGPT) 28 U/L Total Bilirubin 0.2 MG/DL Sodium Level 139 MEQ/L Potassium Level 3.8 MEQ/L Chloride Level 105 MEQ/L Carbon Dioxide Level 26.5 MEQ/L Anion Gap 8 MEQ/L Estimat Glomerular Filtration Rate 57 ML/MIN Total Creatine Kinase 159 U/L Creatine Kinase MB 1.6 NG/ML Troponin I LESS THAN 0.02 NG/ML MDM Medical Decision Making Medical Screen Exam Complete: Yes Emergency Medical Condition: Yes Medical Record Reviewed: Yes Interpretation(s) CBC & BMP Diagram 01/05/18 19:28 Total Protein 8.0, Albumin 3.8, Calcium Level 9.2, Alkaline Phosphatase 63, Aspartate Amino Transf (AST/SGOT) 24, Alanine Aminotransferase (ALT/SGPT) 28, Total Bilirubin 0.2 troponin and CKMB negative EKG shows sinus rhythm with no sign of acute ischemia or arrythmia. Last Impressions Head CT 01/05/18 0000 Signed Impressions: Service Date/Time: Friday, January 05, 2018 21:24 - CONCLUSION: Negative for acute process. Peng Correia MD FACR Differential Diagnosis Hypertension versus hypertensive urgency versus hypertensive emergency versus kidney failure versus heart disease versus CVA versus tension headache versus anxiety Narrative Course 52-year-old female that presents to the ED for evaluation of hypertension. Patient was probably examined and was found to have signs and symptoms consistent appears to be likely hypertension with cephalgia. Physical exam is reassuring. Patient does complain of a lot of stress and likely anxiety. She has no chest pain or shortness of breath. Labs and imaging were ordered. Patient was given clonidine by mouth as well as Tylenol for the pain as well as Ativan for anxiety. Labs and imaging showed no sign of acute disease. Case was discussed with my attending who agrees with plan. Patient had good resolution of symptoms including blood pressure dropping to acceptable levels as well as headache completely resolving. Anxiety has improved. Family and patient agree with plan. Recommendation at this time is trial of clonidine to use only if the blood pressures above 160 and Vistaril for anxiety. I gave patient strict instructions to follow with primary care doctor for further evaluation of the blood pressure is patient will likely need to be added into new blood pressure medications. see ED worsening symptoms. Follow-up with PCP. Diagnosis Primary Impression: Hypertension Qualified Codes: I10 - Essential (primary) hypertension Additional Impression: Anxiety Patient Instructions: General Instructions Departure Forms: Tests/Procedures, Work Release Enter return to work date: Jan 07, 2018 Additional Instructions: Take medication as prescribed. Only take anxiety medication if needed. Take the blood pressure medication only if the systolic number of the blood pressures above 160. Otherwise do not take this medication. Follow-up with primary care doctor for further evaluation of her anxiety as well as her blood pressure as this will likely need more chronic management and different changes of your medications. See ED if any worsening symptoms. Med/Other Pt SpecificInfo: Prescription(s) given Scripts Blood Pressure Kit/Arm Cuff (Blood Pressure Kit/Arm Cuff) 1 Mis Mis EA .XX DIRECTED for Blood Pressure Management, #1 0 Refills Prov: Sahil Akins MD 01/05/18 Hydroxyzine Pamoate (Vistaril) 50 Mg Cap 50 MG PO QID Y for ANXIETY, #20 CAP 0 Refills Prov: Sahil Akins MD 01/05/18 Clonidine (Clonidine) 0.1 Mg Tab 0.1 MG PO BID Y for SBP>160, DBP>90, #20 TAB 0 Refills Prov: Sahil Akins MD 01/05/18 Disposition: 01 DISCHARGE HOME Condition: Stable Juan Miguel Bain Jan 05, 2018 21:36
[2018-01-05] MEDS ORDERED: CLON0.1T PO (22:39)
[2018-01-05] MEDS ORDERED: VIST50CA PO (22:39)
[2018-01-05 22:41] LABS: TROPONIN I LESS THAN 0.02 NG/ML (0.02-0.05)
[2018-01-05] MEDS ORDERED: BLOOD PRESSURE1 M20 (23:02)
--- NOTE | 2018-01-06 13:58 | EKG ---
Date Performed: 01/05/2018 Time Performed: 20:37:39 PTAGE: 52 years EKG: Sinus rhythm NONSPECIFIC T-WAVE ABNORMALITY BORDERLINE ECG Since the PREVIOUS TRACING , no significant change noted PREVIOUS TRACIN07/20/05 DOCTOR: Carmen Fitzgerald Interpretating Date/Time 01/06/2018 13:57:46
== END 2018-01-06 06:33 | disposition home or self-care (01) ==
LOC: NEPE 17:58
DX: I10 Essential (primary) hypertension (principal); F41.9 Anxiety disorder, unspecified; J45.909 Unspecified asthma, uncomplicated; R94.31 Abnormal electrocardiogram [ECG] [EKG]
CPT/HCPCS: 70450; 80053; 82550; 82552; 84484; 85025; 93005; 96374; 99284; J2060

== ENCOUNTER 2018-07-05 12:38 | Inpatient (IN) ==
[2018-07-05] MEDS ORDERED: Sod Chloride 0.9% Inj 1,000 ML IV.SIG ONE ×2 (13:14→14:26)
--- NOTE | 2018-07-05 13:21 | ED ---
HPI General Chief complaint: Nausea/Vomiting/Diarrhea Stated complaint: Nausea/vomiting x 2 days Time Seen by Provider: 07/05/18 13:03 History of Present Illness HPI Narrative: The patient was seen and examined in the presence of the nurse. This patient complains of nausea and vomiting and generalized weakness and malaise. She has a low-grade fever. She does have some runny nose and congestion. No productive cough. No urinary complaint. Symptom severity is moderate. Duration 3 days. No ill contacts. No alleviating factors. No exacerbating factors. Related Data Home Medications Medication Instructions Recorded Confirmed albuterol sulfate 2 puff INHALATION Q4-6H PRN 07/05/18 07/05/18 alprazolam [Xanax] 0.25 mg PO TID PRN 07/05/18 07/05/18 fluoxetine 20 mg PO DAILY 07/05/18 07/05/18 losartan-hydrochlorothiazide 1 tab PO DAILY 07/05/18 07/05/18 ranitidine HCl 150 mg PO BID 07/05/18 07/05/18 Allergies Allergy/AdvReac Type Severity Reaction Status Date / Time diatrizoate meglumine Allergy Unknown Rash, Verified 07/05/18 14:45 Generalized gadobenic acid Allergy Unknown Rash, Verified 07/05/18 14:45 Generalized gadodiamide Allergy Unknown Generalized Verified 07/05/18 14:45 Rash gadoteridol Allergy Unknown Rash, Verified 07/05/18 14:45 Generalized iodixanol Allergy Unknown Generalized Verified 07/05/18 14:45 Rash iohexol Allergy Unknown Generalized Verified 07/05/18 14:45 Rash Review of Systems ROS: all other systems reviewed are negative [facility] Medical History Medical History Asthma (Acute) GERD (gastroesophageal reflux disease) (Acute) H/O: hysterectomy (Acute) Hypertension (Acute) Social History Social History Substance History: No History of Abuse Smoking Status: Former smoker How Often Do You Have a Drink Containing Alcohol: 2 to 4 times a month Recent Travel in [facility] within the Last 8 Weeks: No Recent Out of Country Travel within the Last 8 Weeks: No Exam Narrative Exam Narrative: GENERAL: Well-nourished, well-developed patient in no apparent distress. SKIN: Focused skin assessment reveals no rash and nodules. Skin is Warm and dry. HEAD: Atraumatic. Normocephalic. EYES: Pupils equal and round. No scleral icterus. No injection or drainage. ENT: No nasal bleeding or discharge. Mucous membranes pink and moist. Nares shows clear rhinorrhea, throat clear NECK: Trachea midline. No JVD. No meningeal signs CARDIOVASCULAR: Regular rate and rhythm. No murmur appreciated. RESPIRATORY: No accessory muscle use. Clear to auscultation. Breath sounds equal bilaterally. GASTROINTESTINAL: Abdomen soft, non-tender, nondistended. Hepatic and splenic margins not palpable. MUSCULOSKELETAL: No obvious deformities. No clubbing. No cyanosis. No edema. NEUROLOGICAL: Awake and alert. No obvious cranial nerve deficits. Motor grossly within normal limits. Normal speech. PSYCHIATRIC: Appropriate mood and affect; insight and judgment normal. Course Initial Documented Vital Signs Temperature 100.5 F H 07/05/18 12:51 Pulse Rate 116 H 07/05/18 12:51 Blood Pressure 123/69 07/05/18 12:51 Last Documented Vital Signs Temperature 100.5 F H 07/05/18 12:51 Pulse Rate 102 H 07/05/18 12:54 Respiratory Rate 18 07/05/18 12:54 Blood Pressure 119/73 07/05/18 12:54 Pulse Oximetry 95 07/05/18 12:54 Medical Decision Making MDM Narrative Medical decision making narrative: IV placed and labs sent. I gave her IV Zofran and a liter saline IV bolus. Patient looks ill. She is febrile and tachycardic and has leukocytosis and significant drop in her renal function to the GFR of 25. Giving her a second liter of saline IV. I am giving her IV antibiotics. 2 sets of blood cultures obtained prior to antibiotics. Urinalysis shows the source of innumerable white cells with bacteria. She is also hyponatremic and hypokalemic. Call is been placed to hospitalist to discuss. Aggregate critical care time was 35 minutes. Time to perform other separately billable procedures was not included in the critical care time. My time did not include minutes spent treating any other patients simultaneously or on activities that did not directly contribute to the patient' s treatment. The services I provided to this patient were to treat and/or prevent clinically significant deterioration that could result in: Septic shock, cardiopulmonary arrest, permanent renal function loss I provided critical care services requiring my management, as noted below: Chart data review, documentation time, medication orders and management, vital sign assessments/reviewing monitor data, ordering and reviewing lab tests, ordering and interpreting/reviewing x-rays and diagnostic studies, care of the patient and discussion of the patient with the admitting physicians. Medical Screen Exam Complete: Yes Emergency Medical Condition: Yes Differential Diagnosis Differential Diagnosis: Gastroenteritis, colitis, bronchitis, flu syndrome Medical Records Medical records reviewed: Yes I reviewed the patient's medical records. Lab Data Lab results reviewed: Yes I reviewed the patient's lab results. Lab results narrative: Has leukocytosis. Has some renal insufficiency. Result diagrams: 07/05/18 13:15 07/05/18 13:15 Lab Results 07/05/18 07/05/18 07/05/18 Range/Units 13:15 13:15 14:10 CBC w Diff Auto diff final WBC 18.6 H (4.0-11.0) th/mm3 RBC 4.56 (4.00-5.30) mil/mm3 Hgb 13.7 (11.6-15.3) gm/dL Hct 40.7 (35.0-46.0) % MCV 89.3 (80.0-100.0) fL MCH 30.1 (27.0-34.0) pg MCHC 33.6 (32.0-36.0) % RDW 12.7 (11.6-17.2) % Plt Count 205 (150-450) th/mm3 MPV 8.8 (7.0-11.0) fL Neut % (Auto) 86.9 H (16.0-70.0) % Lymph % (Auto) 5.1 L (9.0-44.0) % Hand % (Auto) 5.0 (0.0-8.0) % Eos % (Auto) 0.0 (0.0-4.0) % Baso % (Auto) 3.0 H (0.0-2.0) % Neut # (Auto) 16.2 H (1.8-7.7) th/mm3 Lymph # (Auto) 0.9 L (1.0-4.8) th/mm3 Hand # (Auto) 0.9 (0.0-0.9) th/mm3 Eos # (Auto) 0.0 (0.0-0.4) th/mm3 Baso # (Auto) 0.6 H (0.0-0.2) th/mm3 WBC Differential . Differential Comment . Sodium 133 L (136-145) meq/L Potassium 3.3 L (3.5-5.1) meq/L Chloride 96 L (98-107) meq/L Carbon Dioxide 23.4 (21.0-32.0) meq/L Anion Gap 14 (5-15) meq/L BUN 21 H (7-18) mg/dL Creatinine 2.00 H (0.50-1.00) mg/dL Estimated GFR 26 L (>89) mL/min Random Glucose 142 H (74-106) mg/dL Calcium 8.4 L (8.5-10.1) mg/dL Total Bilirubin 1.0 (0.2-1.0) mg/dL AST 22 (15-37) U/L ALT 22 (10-53) U/L Alkaline Phosphatase 60 (45-117) U/L Total Protein 7.3 (6.4-8.2) g/dL Albumin 3.1 L (3.4-5.0) g/dL Ur Collection Type Clean catch Urine Color Yellow (Yellw/Straw) Urine Clarity Slightly cloudy (Clear) Urine pH 7.5 (5.0-8.5) Ur Specific [place] 1.010 (1.002-1.035) Urine Protein 300 or greater H (Neg-Trace) mg/dL Urine Glucose (UA) Negative (Negative) mg/dL Urine Ketones Trace H (Negative) mg/dL Urine Occult Blood Large H (Negative) Urine Nitrate Negative (Negative) Urine Bilirubin Negative (Negative) Urine Urobilinogen 0.2 (Less than 2) mg/dL Ur Leukocyte Esterase Large H (Negative) Urine RBC 15-50 H (0-3) /hpf Urine WBC Innumerable H (0-5) /hpf Urine WBC Clumps Moderate H (None) Ur Squamous Epith Cells 6-10 H (0-5) /hpf Ur Renal Epithelial Cell 1-5 H (None) /hpf Urine Bacteria Many H (None) /hpf Micro UA Comment Culture indicated Ur Microscopic Review Microscopic reviewed Urine Culture Comments Culture indicated Discharge Plan Discharge Disposition Patient Disposition: 30 Still Patient Discharge Details Diagnosis: Sepsis, Pyelonephritis Physicians Team ED Provider: Alirio Fitzpatrick Primary Care Provider: Allan Knight Rxs /Orders / Referrals /Forms Prescriptions: No Action alprazolam [Xanax] 0.25 mg Tablet 0.25 mg PO TID PRN (Reason: Anxiety) RF: 0 ranitidine HCl 150 mg Tablet 150 mg PO BID RF: 0 albuterol sulfate 90 mcg/actuation Hfa Aerosol Inhaler 2 puff INHALATION Q4-6H PRN (Reason: Shortness Of Breath) RF: 0 fluoxetine 20 mg Capsule 20 mg PO DAILY RF: 0 losartan-hydrochlorothiazide 100-12.5 mg Tablet 1 tab PO DAILY RF: 0 Discharge Interventions Interventions: Vital Signs Last Done: 07/05/18 12:54 Status ED Status: With Doctor
[2018-07-05 13:25] LABS: Baso # (Auto) 0.6 th/mm3 (0.0-0.2); Hematocrit 40.7 % (35.0-46.0); Hemoglobin 13.7 gm/dL (11.6-15.3); Lymph # (Auto) 0.9 th/mm3 (1.0-4.8); Lymph % (Auto) 5.1 % (9.0-44.0); Mean Corpuscular HGB Conc 33.6 % (32.0-36.0); Mean Corpuscular Hemoglobin 30.1 pg (27.0-34.0); Mean Corpuscular Volume 89.3 fL (80.0-100.0); Mean Platelet Volume 8.8 fL (7.0-11.0); Mono # (Auto) 0.9 th/mm3 (0.0-0.9); Neut # (Auto) 16.2 th/mm3 (1.8-7.7); Neut % (Auto) 86.9 % (16.0-70.0); Platelet Count 205 th/mm3 (150-450); Red Blood Count 4.56 mil/mm3 (4.00-5.30); Red Cell Distribution Width 12.7 % (11.6-17.2); White Blood Count 18.6 th/mm3 (4.0-11.0)
[2018-07-05 13:47] LABS: Chloride 96 meq/L (98-107); Potassium 3.3 meq/L (3.5-5.1); Sodium 133 meq/L (136-145)
[2018-07-05 13:50] LABS: Calcium 8.4 mg/dL (8.5-10.1)
[2018-07-05 13:51] LABS: Albumin 3.1 g/dL (3.4-5.0); Anion Gap 14 meq/L (5-15); Blood Urea Nitrogen 21 mg/dL (7-18); Carbon Dioxide 23.4 meq/L (21.0-32.0); Glucose,Random 142 mg/dL (74-106)
[2018-07-05 13:54] LABS: Alanine Aminotransferase 22 U/L (10-53); Aspartate Aminotransferase 22 U/L (15-37); Glomerular Filtration Rate 26 mL/min (>89)
[2018-07-05 13:55] LABS: Total Protein 7.3 g/dL (6.4-8.2)
[2018-07-05 13:57] LABS: Alkaline Phosphatase 60 U/L (45-117)
[2018-07-05 14:23] LABS: Bilirubin,Urine Negative (Negative); Clarity,Urine Slightly Cloudy (Clear); Color,Urine Yellow (Yellw/Straw); Glucose,Urine (UA) Negative (Negative); Leukocyte Esterase,Urine Large (Negative); Nitrite,Urine Negative (Negative); PH,Urine 7.5 (5.0-8.5); Urobilinogen,Urine 0.2 mg/dL (Less than 2)
[2018-07-05 14:29] LABS: WBC,Urine Innumerable /hpf (0-5)
[2018-07-05 14:30] LABS: Bacteria,Urine Many /hpf
[2018-07-05] MEDS: Lactobacillus Acidophilus/L. Spores Tablet PO SCH (17:16)
[2018-07-05] MEDS: Heparin - SQ 10,000 UNITS/ML Vial SQ SCH (17:16)
[2018-07-05] MEDS: Acetaminophen 500 MG Tablet PO PRN (17:16)
[2018-07-05] MEDS: Sod Chloride 0.9% Inj 1,000 ML IV.CONT SCH (17:18)
--- NOTE | 2018-07-05 17:19 | P.HP ---
History of Present Illness Primary Care Physician: Allan Knight MD Chief Complaint: Nausea, vomiting and generalized malaise History of Present Illness: This is a 53-year-old female patient with a known medical history of hypertension who presented to the ED with complaints of nausea, vomiting and generalized malaise x 3 days. Patient does state that she had a subjective fever of 103 at home as well as nausea and vomiting times 3 days, with inability to keep anything down by mouth. She states that her emesis is green and yellow in color. She denies any recent cough, chest pain, shortness of breath, diarrhea or or dysuria. Patient has an extensive history of neurological problems. Patient states that she followed with Dr. Florian, urologist roughly 8 years ago. At that time she did have bilateral stent placements in her ureters and eventually underwent a bilateral reimplantation of both ureters in 2009. Since that time patient has been asymptomatic without any urological issues. It should be noted that patient had a tooth extraction several weeks ago and did complete a course of antibiotics although patient is unaware of name of these. Patient sees PCP, Dr. Knight, last seen a week ago , states that she was told she had hepatomegaly and was ordered for blood work and hepatitis workup although patient has been unable to get this workup secondary to feeling so sick the past several days. Patient does admit to a history of asthma has been controlled with albuterol sulfate at home. At the time of assessment today patient is very uncomfortable, lying in bed complaining of her abdomen aching especially in her midepigastric area as well as bilateral CVA tenderness. Patient does meet sepsis criteria, febrile, tachycardia, leukocytosis and UTI. Awaiting abdominal CT as well as kidney ultrasound. Sepsis workup in place. - Diagnosis (1) Sepsis (2) Pyelonephritis Inpatient Certification: I certify that the inpatient services were ordered in accordance with Medicare regulations governing the order. This includes certification that hospital inpatient services are reasonable and necessary and in the case of services not specified as inpatient-only under 42 CFR 419.22(n), that they are appropriately provided as inpatient services in accordance to with the 2-midnight benchmark under 43 CFR 412.3(e) Estimated Total Length of Stay (Days): 3 Plans for Post Hospital Care: Home Review of Systems All other systems reviewed negative except as stated [facility] - History History Provided By: Patient - Medical History Medical History: Medical History (Last Updated 07/05/18 @ 17:52 by Sienna Stanton) Asthma Bilateral ureteral duplication GERD (gastroesophageal reflux disease) H/O: hysterectomy Hypertension Obstruction of both ureters - Family History Family History: Family History (Last Updated 07/05/18 @ 17:53 by Sienna Stanton) Mother Breast cancer - Tobacco History Second Hand Smoke Exposure: No Tobacco Use In Past 30 Days: No Smoking Status: Former smoker - Alcohol History How Often Do You Have a Drink Containing Alcohol: 2 to 4 times a month - Substance Use History Substance History: No History of Abuse - Travel History Recent Travel in the [place] Within the Last 8 Weeks: No Recent Travel Out of the Country Within the Last 8 Weeks: No - Immunization History Tetanus Immunization: Unsure Hx Influenza Vaccine This Season: No Medications and Allergies Active Medications: Active Medications Acetaminophen (Tylenol) 500 mg PO Q6H PRN PRN Reason: FEVER Al Hydroxide/Mg Hydroxide (Milk Of Anuradha Lazo) 30 ml PO Q12H PRN PRN Reason: Mild Constipation Heparin Sodium (Porcine) (Heparin Inj) 5,000 units SQ Q12H MAGNO Ceftriaxone Sodium 1,000 mg/ (Sodium Chloride) 100 mls @ 200 mls/hr IV.SIG Q24H MAGNO Sodium Chloride (Ns Inj) 1,000 mls @ 100 mls/hr IV.CONT .Q10H MAGNO Lactobacillus Acidophilus (Lactinex) 1 tab PO TID MAGNO Ondansetron HCl (Zofran Inj) 4 mg IV.PUSH Q6H PRN PRN Reason: NAUSEA OR VOMITING Oxycodone/Acetaminophen (Percocet 10/325 Mg) 1 tab PO Q4H PRN PRN Reason: Pain 7 to 10 Oxycodone/Acetaminophen (Percocet 5/325 Mg) 1 tab PO Q4H PRN PRN Reason: Pain 3 to 6 Sodium Chloride (Ns Flush) 2 ml IV.FLUSH PRN PRN PRN Reason: FLUSH AFTER USING IV ACCESS Allergies Allergy/AdvReac Type Severity Reaction Status Date / Time diatrizoate meglumine Allergy Unknown Rash, Verified 07/05/18 14:45 Generalized gadobenic acid Allergy Unknown Rash, Verified 07/05/18 14:45 Generalized gadodiamide Allergy Unknown Generalized Verified 07/05/18 14:45 Rash gadoteridol Allergy Unknown Rash, Verified 07/05/18 14:45 Generalized iodixanol Allergy Unknown Generalized Verified 07/05/18 14:45 Rash iohexol Allergy Unknown Generalized Verified 07/05/18 14:45 Rash Home Medications Medication Instructions Recorded Confirmed Type albuterol sulfate 2 puff INHALATION Q4-6H PRN 07/05/18 07/05/18 History alprazolam [Xanax] 0.25 mg PO TID PRN 07/05/18 07/05/18 History fluoxetine 20 mg PO DAILY 07/05/18 07/05/18 History losartan-hydrochlorothiazide 1 tab PO DAILY 07/05/18 07/05/18 History ranitidine HCl 150 mg PO BID 07/05/18 07/05/18 History Exam Vital signs: Vital Signs 07/05/18 12:51 07/05/18 12:54 07/05/18 15:00 Temperature 100.5 F H Pulse Rate 116 H 102 H 100 H Respiratory Rate 18 16 Blood Pressure 123/69 119/73 109/60 Pulse Oximetry 95 94 L 07/05/18 15:52 07/05/18 17:02 Temperature 101.3 F H Pulse Rate 96 H Respiratory Rate 18 Blood Pressure 115/75 Pulse Oximetry 97 Intake & Output 07/04/18 07/05/18 07/05/18 18:59 06:59 18:59 Intake Total 2099 Balance 2099 Weight 79.6 kg Intake: IV 2099 NS Inj 1,000 ML @ Wide Open IV. 1999 SIG BOLUS ONE Rx#:[id number] Rocephin Inj 1,000 MG In NS Inj 100 / 100 100 ML @ 200 mls/hr IV.SIG ONCE ONE Rx#:[id number] Narrative: GENERAL: Well-developed, well-nourished patient with apparent diffuse abdominal pain and CVA tenderness as well as nausea SKIN: Warm and dry. No rash. HEAD: Normocephalic. Atraumatic. EYES: Pupils equal and round. No scleral icterus. No injection or drainage. ENT: No nasal bleeding or discharge. Mucous membranes pink and moist. NECK: Supple. Trachea midline. CARDIOVASCULAR: Regular rate and rhythm. S1, S2 noted. No murmur appreciated. RESPIRATORY: No accessory muscle use. Clear to auscultation. Breath sounds equal bilaterally. GASTROINTESTINAL: Abdomen soft, nondistended. Normoactive bowel sounds x4. Tenderness especially in mid epigastric area. : Bilateral CVA tenderness. Worse on left. MUSCULOSKELETAL: No obvious deformities. Extremities without clubbing, cyanosis , or edema. NEUROLOGICAL: Awake and alert. No obvious cranial nerve deficits. Motor grossly within normal limits. 5/5 muscle strength in bilateral upper and lower extremities. Normal speech. PSYCHIATRIC: Appropriate mood and affect; insight and judgment normal. Results - Labs CBC & Chem 7: 07/05/18 13:15 07/05/18 13:15 Labs: Laboratory Results - last 24 hr 07/05/18 07/05/18 07/05/18 13:15 13:15 14:10 CBC w Diff Auto diff final WBC 18.6 H RBC 4.56 Hgb 13.7 Hct 40.7 MCV 89.3 MCH 30.1 MCHC 33.6 RDW 12.7 Plt Count 205 MPV 8.8 Neut % (Auto) 86.9 H Lymph % (Auto) 5.1 L [place] % (Auto) 5.0 Eos % (Auto) 0.0 Baso % (Auto) 3.0 H Neut # (Auto) 16.2 H Lymph # (Auto) 0.9 L [place] # (Auto) 0.9 Eos # (Auto) 0.0 Baso # (Auto) 0.6 H WBC Differential . Differential Comment . Sodium 133 L Potassium 3.3 L Chloride 96 L Carbon Dioxide 23.4 Anion Gap 14 BUN 21 H Creatinine 2.00 H Estimated GFR 26 L Random Glucose 142 H Calcium 8.4 L Total Bilirubin 1.0 AST 22 ALT 22 Alkaline Phosphatase 60 Total Protein 7.3 Albumin 3.1 L Ur Collection Type Clean catch Urine Color Yellow Urine Clarity Slightly cloudy Urine pH 7.5 Ur Specific [place] 1.010 Urine Protein 300 or greater H Urine Glucose (UA) Negative Urine Ketones Trace H Urine Occult Blood Large H Urine Nitrate Negative Urine Bilirubin Negative Urine Urobilinogen 0.2 Ur Leukocyte Esterase Large H Urine RBC 15-50 H Urine WBC Innumerable H Urine WBC Clumps Moderate H Ur Squamous Epith Cells 6-10 H Ur Renal Epithelial Cell 1-5 H Urine Bacteria Many H Micro UA Comment Culture indicated Ur Microscopic Review Microscopic reviewed Urine Culture Comments Culture indicated Caprini VTE Risk Assessment Caprini VTE Risk Assessment: No/Low Risk (score <= 1) Caprini Risk Assessment Model: Point Value = 1 Point Value = 2 Point Value = 3 Point Value = 5 Age 41-60 Minor surgery BMI > 25 kg/m2 Swollen legs Varicose veins or History of unexplained or recurrent spontaneous Oral contraceptives or hormone replacement Sepsis (< 1 month) Serious lung disease, including pneumonia (< 1 month) Abnormal pulmonary function Acute myocardial infarction Congestive heart failure (< 1 month) History of inflammatory bowel disease Medical patient at bed rest Age 61-74 Arthroscopic surgery Major open surgery (> 45 min) Laparoscopic surgery (> 45 min) Malignancy Confined to bed (> 72 hours) Immobilizing plaster cast Central venous access Age >= 75 History of VTE Family history of VTE Factor V Leiden Prothrombin [id number] Lupus anticoagulant Anticardiolipin antibodies Elevated serum homocysteine Heparin-induced thrombocytopenia Other congenital or acquired thrombophilia Stroke (< 1 month) Elective arthroplasty Hip, pelvis, or leg fracture Acute spinal cord injury (< 1 month) Prophylaxis Regimen: Total Risk Factor Score Risk Level Prophylaxis Regimen 0-1 Low Early ambulation 2 Moderate Order ONE of the following: *Sequential Compression Device (SCD) *Heparin 5000 units SQ BID 3-4 Higher Order ONE of the following medications: *Heparin 5000 units SQ TID *Enoxaparin/Lovenox 40 mg SQ daily (WT < 150 kg, CrCl > 30 mL/min) *Enoxaparin/Lovenox 30 mg SQ daily (WT < 150 kg, CrCl > 10-29 mL/min) *Enoxaparin/Lovenox 30 mg SQ BID (WT < 150 kg, CrCl > 30 mL/min) AND/OR *Sequential Compression Device (SCD) 5 or more Highest Order ONE of the following medications: *Heparin 5000 units SQ TID (Preferred with Epidurals) *Enoxaparin/Lovenox 40 mg SQ daily (WT < 150 kg, CrCl > 30 mL/min) *Enoxaparin/Lovenox 30 mg SQ daily (WT < 150 kg, CrCl > 10-29 mL/min) *Enoxaparin/Lovenox 30 mg SQ BID (WT < 150 kg, CrCl > 30 mL/min) AND *Sequential Compression Device (SCD) Assessment and Plan - Assessment (1) Sepsis Code(s): A41.9 - Sepsis, unspecified organism Status: Acute (2) Pyelonephritis Code(s): N12 - Tubulo-interstitial nephritis, not specified as acute or chronic Status: Acute - Plan This is a 53-year-old female patient with: Sepsis Pyelonephritis Acute kidney injury suspect secondary to above History of bilateral ureter stents as well as bilateral ureteral reimplantation -Patient presented with a 3-day history of nausea, vomiting and generalized malaise. -Meets sepsis criteria with fever 101.3, tachycardiac, leukocytosis with WBC of 18,000 and possible source urinary tract. Check lactic acid. -UA showing large amount of leukocyte esterase and WBC. Urine culture and blood cultures pending. Follow growth. Started on Rocephin for now. -Was given 2 L NS bolus in ED. Continue IVF. Ensure hydration. -Avoid nephrotoxins. -Creatinine 2.0. Upon review of patient's baseline, she is usually around 1.0. Will continue to monitor BMP. Follow in am. -Pain control with oxycodone as needed per pain scale. -Check renal US. Will check abdominal/pelvis CT without contrast secondary to BARBARA and allergy. Follow results. -Previously followed with Dr. Florian, urology, will hold off on consult until renal ultrasound and abdominal CT reviewed obtained. Follow results. Hypokalemia: K 3.3. Replenish as ordered. Follow. Hypertension, chronic: Continue home medications. Monitor BP trends. Monitor for hypotension. Hepatomegaly: Patient has been undergoing outpatient workup although has not gotten her labs for hepatitis. Will add to panel. Follow. Awaiting abdominal CT. LFTs WNL. DVT prophylaxis: SCDs. Heparin. (1) Sepsis Qualifiers: Sepsis type: sepsis due to unspecified organism Qualified Code(s): A41.9 - Sepsis, unspecified organism
[2018-07-05] MEDS ORDERED: Potassium Chlor 20 mEq Premix 20 MEQ/100 ML PIGGYBACK IV.SIG ONE (17:47)
[2018-07-05] MEDS ORDERED: Morphine Sulfate Inj 2 MG/ML Vial IV.PUSH PRN (17:56)
[2018-07-05] MEDS ORDERED: Sod Chloride 0.9% Inj 1,000 ML IV.SIG SCH (18:00)
[2018-07-05 21:28] LABS: Albumin 2.8 g/dL (3.4-5.0)
[2018-07-05 21:33] LABS: Total Protein 7.1 g/dL (6.4-8.2)
[2018-07-06] MEDS ORDERED: Diatrizoate Meglum/Diatrizoate Sod Liq 9 ML UDC PO ONE (00:15)
[2018-07-06] MEDS: Heparin - SQ 10,000 UNITS/ML Vial SQ SCH ×2 (04:49→17:04)
[2018-07-06] MEDS: Sod Chloride 0.9% Inj 1,000 ML IV.CONT SCH (04:49)
--- NOTE | 2018-07-06 07:48 | P.PNIM ---
Subjective Interval history: Follow up sepsis and pyelonephritis. Patient seen and examined, sitting up in bed much improved today. Pain and nausea are well controlled. Abdomen is soft, mild tenderness to midepigastric area. Denies any chest pain or shortness of breath. Awaiting ab CT today. VSS overnight. Physical Exam Vital signs: Vital Signs 07/05/18 12:51 07/05/18 12:54 07/05/18 15:00 Temperature 100.5 F H Pulse Rate 116 H 102 H 100 H Respiratory Rate 18 16 Blood Pressure 123/69 119/73 109/60 Pulse Oximetry 95 94 L 07/05/18 15:52 07/05/18 17:02 07/05/18 18:54 Temperature 101.3 F H 99.5 F Pulse Rate 96 H Respiratory Rate 18 Blood Pressure 115/75 Pulse Oximetry 97 07/05/18 20:00 07/06/18 00:00 07/06/18 04:00 Temperature 99 F 99.8 F H 96.3 F L Pulse Rate 91 H 96 H 92 H Respiratory Rate 20 20 20 Blood Pressure 125/67 125/70 144/83 H Pulse Oximetry 95 97 100 Intake & Output 07/05/18 07/06/18 07/06/18 18:59 06:59 18:59 Intake Total 2099 / 2099 1380 / 1380 Balance 2099 / 2099 1380 / 1380 Weight 79.6 kg 80 kg Intake: IV 2099 / 2099 900 / 900 NS Inj 1,000 ML @ 100 mls/hr IV 800 / 800 .CONT .Q10H MAGNO Rx#:[id number] KCl 20 mEq Premix Inj 20 meq In 100 / 100 100 ml @ 50 mls/hr IV.SIG ONCE ONE Rx#:[id number] NS Inj 1,000 ML @ Wide Open IV. 1999 / 1999 SIG BOLUS ONE Rx#:[id number] Rocephin Inj 1,000 MG In NS Inj 100 / 100 100 ML @ 200 mls/hr IV.SIG ONCE ONE Rx#:[id number] Oral 480 / 480 Other: # Voids 4 Narrative: GENERAL: Well-developed, well-nourished patient lying in bed comfortably. With mild ab discomfort in midepigastric area. SKIN: Warm and dry. No rash. HEAD: Normocephalic. Atraumatic. EYES: Pupils equal and round. No scleral icterus. No injection or drainage. ENT: No nasal bleeding or discharge. Mucous membranes pink and moist. NECK: Supple. Trachea midline. CARDIOVASCULAR: Regular rate and rhythm. S1, S2 noted. No murmur appreciated. RESPIRATORY: No accessory muscle use. Clear to auscultation. Breath sounds equal bilaterally. GASTROINTESTINAL: Abdomen soft, nondistended. Normoactive bowel sounds x4. Tenderness especially in mid epigastric area. : Bilateral CVA tenderness. Worse on left. MUSCULOSKELETAL: No obvious deformities. Extremities without clubbing, cyanosis , or edema. NEUROLOGICAL: Awake and alert. No obvious cranial nerve deficits. Motor grossly within normal limits. 5/5 muscle strength in bilateral upper and lower extremities. Normal speech. PSYCHIATRIC: Appropriate mood and affect; insight and judgment normal. Results - Labs CBC & Chem 7: 07/05/18 13:15 07/05/18 13:15 Laboratory Results - last 24 hr 07/05/18 07/05/18 07/05/18 13:15 13:15 14:10 CBC w Diff Auto diff final WBC 18.6 H RBC 4.56 Hgb 13.7 Hct 40.7 MCV 89.3 MCH 30.1 MCHC 33.6 RDW 12.7 Plt Count 205 MPV 8.8 Neut % (Auto) 86.9 H Lymph % (Auto) 5.1 L [place] % (Auto) 5.0 Eos % (Auto) 0.0 Baso % (Auto) 3.0 H Neut # (Auto) 16.2 H Lymph # (Auto) 0.9 L [place] # (Auto) 0.9 Eos # (Auto) 0.0 Baso # (Auto) 0.6 H WBC Differential . Differential Comment . Sodium 133 L Potassium 3.3 L Chloride 96 L Carbon Dioxide 23.4 Anion Gap 14 BUN 21 H Creatinine 2.00 H Estimated GFR 26 L Random Glucose 142 H Lactic Acid Calcium 8.4 L Total Bilirubin 1.0 Direct Bilirubin Indirect Bilirubin AST 22 ALT 22 Alkaline Phosphatase 60 Total Protein 7.3 Albumin 3.1 L Ur Collection Type Clean catch Urine Color Yellow Urine Clarity Slightly cloudy Urine pH 7.5 Ur Specific [place] 1.010 Urine Protein 300 or greater H Urine Glucose (UA) Negative Urine Ketones Trace H Urine Occult Blood Large H Urine Nitrate Negative Urine Bilirubin Negative Urine Urobilinogen 0.2 Ur Leukocyte Esterase Large H Urine RBC 15-50 H Urine WBC Innumerable H Urine WBC Clumps Moderate H Ur Squamous Epith Cells 6-10 H Ur Renal Epithelial Cell 1-5 H Urine Bacteria Many H Micro UA Comment Culture indicated Ur Microscopic Review Microscopic reviewed Urine Culture Comments Culture indicated 07/05/18 07/05/18 21:00 21:00 CBC w Diff WBC RBC Hgb Hct MCV MCH MCHC RDW Plt Count MPV Neut % (Auto) Lymph % (Auto) [place] % (Auto) Eos % (Auto) Baso % (Auto) Neut # (Auto) Lymph # (Auto) [place] # (Auto) Eos # (Auto) Baso # (Auto) WBC Differential Differential Comment Sodium Potassium Chloride Carbon Dioxide Anion Gap BUN Creatinine Estimated GFR Random Glucose Lactic Acid 1.0 Calcium Total Bilirubin 0.6 Direct Bilirubin 0.2 Indirect Bilirubin 0.4 AST 25 ALT 26 Alkaline Phosphatase 60 Total Protein 7.1 Albumin 2.8 L Ur Collection Type Urine Color Urine Clarity Urine pH Ur Specific [place] Urine Protein Urine Glucose (UA) Urine Ketones Urine Occult Blood Urine Nitrate Urine Bilirubin Urine Urobilinogen Ur Leukocyte Esterase Urine RBC Urine WBC Urine WBC Clumps Ur Squamous Epith Cells Ur Renal Epithelial Cell Urine Bacteria Micro UA Comment Ur Microscopic Review Urine Culture Comments Assessment and Plan - Assessment (1) Sepsis Code(s): A41.9 - Sepsis, unspecified organism Status: Acute (2) Pyelonephritis Code(s): N12 - Tubulo-interstitial nephritis, not specified as acute or chronic Status: Acute - Plan This is a 53-year-old female patient with: Sepsis Pyelonephritis Acute kidney injury suspect secondary to above History of bilateral ureter stents as well as bilateral ureteral reimplantation -Patient presented with a 3-day history of nausea, vomiting and generalized malaise. -Met sepsis criteria with fever 101.3, tachycardiac, leukocytosis with WBC of 18 ,000 and possible source urinary tract. Lactic acid 1.0. -UA showing large amount of leukocyte esterase and WBC. Urine culture and blood cultures pending. Follow growth. Started on Rocephin for now. -Was given 2 L NS bolus in ED. Continue IVF. Ensure hydration. -Avoid nephrotoxins. -Creatinine 2.0. Upon review of patient's baseline, she is usually around 1.0. Will continue to monitor BMP. Awaiting labs today. -Pain control with oxycodone as needed per pain scale as well as Morphine IV available per pain scale. -Check renal US. Will check abdominal/pelvis CT without contrast secondary to BARBARA and allergy. Follow results. -Previously followed with Dr. Florian, urology, will hold off on consult until renal ultrasound and abdominal CT reviewed obtained. Follow results. Hypokalemia: K 3.3. Replenished as ordered. Awaiting labs today. Hypertension, chronic: Continue home medications. Monitor BP trends. Monitor for hypotension. Hepatomegaly: Patient has been undergoing outpatient workup although has not gotten her labs for hepatitis. Will add to panel. Follow. Awaiting abdominal CT. LFTs WNL. DVT prophylaxis: SCDs. Heparin. (1) Sepsis Qualifiers: Sepsis type: sepsis due to unspecified organism Qualified Code(s): A41.9 - Sepsis, unspecified organism
[2018-07-06] MEDS: FLUoxetine 20 MG Capsule PO SCH (09:07)
[2018-07-06 09:56] LABS: Baso % (Auto) 0.1 % (0.0-2.0); Eos % (Auto) 0.1 % (0.0-4.0); Hematocrit 39.3 % (35.0-46.0); Hemoglobin 13.5 gm/dL (11.6-15.3); Lymph # (Auto) 0.4 th/mm3 (1.0-4.8); Lymph % (Auto) 2.9 % (9.0-44.0); Mean Corpuscular HGB Conc 34.3 % (32.0-36.0); Mean Corpuscular Hemoglobin 30.5 pg (27.0-34.0); Mean Corpuscular Volume 88.7 fL (80.0-100.0); Mean Platelet Volume 9.4 fL (7.0-11.0); Mono # (Auto) 0.4 th/mm3 (0.0-0.9); Neut # (Auto) 13.7 th/mm3 (1.8-7.7); Neut % (Auto) 93.9 % (16.0-70.0); Platelet Count 181 th/mm3 (150-450); Red Blood Count 4.43 mil/mm3 (4.00-5.30); Red Cell Distribution Width 13.7 % (11.6-17.2); White Blood Count 14.5 th/mm3 (4.0-11.0)
--- NOTE | 2018-07-06 10:08 | CT ---
EXAM DATE: 07/06/2018 9:31 AM EDT AGE/SEX: 53 years / Female INDICATIONS: Mid epigastric pain. Nausea, vomiting and fever. CLINICAL DATA: This is the patient's initial encounter. Patient reports that signs and symptoms have been present for 3 days and indicates a pain score of 2/10. MEDICAL/SURGICAL HISTORY: Hypertension. Asthma. Hysterectomy. Bilateral ureteral repairs. RADIATION DOSE: 18.47 CTDI (mGy) COMPARISON: COMP, CT ABDOMEN AND PELVIS W/O CONTRAST, 10/13/2016. . TECHNIQUE: Multiple contiguous axial images were obtained through the abdomen. Images were obtained using multiple row detector helical technique. Using automated exposure control and adjustment of the mA and/or kV according to patient size, radiation dose was kept as low as reasonably achievable to o btain optimal diagnostic quality images. DICOM format image data is available electronically for rev iew and comparison. FINDINGS: Lower Lungs: The visualized lower lungs are clear. Liver: The liver is enlarged. The liver has a homogeneous density without space-occupying lesion. The re is no dilation of the biliary tree. Spleen: Homogeneous density without enlargement. Pancreas: Unremarkable without mass or calcification. Kidneys: Perinephric streakiness in an thickening of the wall the right collecting system and ureter are noted raising possibility of recently passed calculus or infectious/inflammatory process of the right urinary system. No obstructing calculus is noted on the right. There are multiple tiny calcifie d nonobstructing bilateral renal calculi which are stable. The largest calculus is noted on the left within the lower pole and measures 14 mm. Cortical scarring is noted probably on the left. Adrenal Glands: Unremarkable. Aorta: The aorta and proximal iliac vessels are grossly unremarkable without aneurysmal dilation. Bowel/Mesentery: Uncomplicated colonic diverticulosis is noted. No acute diverticulitis is noted. Abdominal Wall: Ventral abdominal wall hernia containing only fat is noted. Retroperitoneum: No evidence of adenopathy in the retrocrural, para-aortic, or deep pelvic regions. Bladder: Contours are smooth. Reproductive Organs: There is a stable right adnexal mass measuring 4.4 x 4.7 x 3.7 cm. This likely represents an enlarged right ovary. The left ovary is minimally prominent but is also stable. Inguinal: The inguinal region is unremarkable without evidence of adenopathy. Bony Structures: Grade I anterolisthesis of L5 in relation to S1 is noted. Bilateral pars defects ar e again noted at this level. Degenerative changes and scoliosis of the thoracolumbar spine are noted. CONCLUSION: 1. Perinephric streakiness in an thickening of the wall the right collecting system and ureter are n oted raising possibility of recently passed calculus or infectious/inflammatory process of the right urinary system. No obstructing calculus is noted on the right. There are multiple tiny calcified nono bstructing bilateral renal calculi which are stable. The largest calculus is noted on the left within the lower pole and measures 14 mm. Cortical scarring is noted probably on the left. 2. Hepatomegaly. 3. Stable ventral abdominal wall hernia containing only fat. 4. Uncomplicated colonic diverticulosis. 5. Stable right adnexal mass measuring 4.4 x 4.7 x 3.7 cm consistent with enlarged right ovary. Ther e is minimal prominence of the left ovary also. 6. Grade I anterolisthesis of L5 in relation to S1 is noted. 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 Degenerative changes and scoliosis of the thoracolumbar spine are noted. Electronically signed by: Sahil Samson MD 07/06/2018 10:07 AM EDT
[2018-07-06 10:22] LABS: Calcium 7.4 mg/dL (8.5-10.1); Carbon Dioxide 23.3 meq/L (21.0-32.0)
--- NOTE | 2018-07-06 10:26 | US ---
EXAM DATE: 07/06/2018 12:00 AM EDT AGE/SEX: 53 years / Female INDICATIONS: Flank pain. CLINICAL DATA: This is the patient's initial encounter. Patient reports that signs and symptoms have been present for 1 day and indicates a pain score of 4/10. MEDICAL/SURGICAL HISTORY: Asthma. Gastroesophageal reflux disease. Hypertension. Hysterectomy . COMPARISON: [facility], US ABDOMEN LIVER, 02/14/2018. . MEASUREMENTS: Right Kidney:__12.7 x 5.4 x 5.9 cm Left Kidney:__11.2 x 4.7 x 5.4 cm FINDINGS: Right Kidney: Mild dilatation of the right collecting system otherwise unremarkable. Left Kidney: Mild dilatation of the left collecting system with a 1.3 cm stone lower pole left kidney . Bladder: Within normal limits given the degree of distension. Other: None. CONCLUSION: 1. Mild dilatation of both collecting systems 2. Nonobstructing stone lower pole left kidney. Electronically signed by: Peng Correia MD 07/06/2018 10:25 AM EDT
[2018-07-06 11:16] LABS: Total Protein 7.2 g/dL (6.4-8.2)
[2018-07-06] MEDS ORDERED: Vancomycin Inj 1 GM/200 ML PIGGYBACK IV.SIG SCH (12:00)
[2018-07-06] MEDS: Piperacil/Tazo 3.375 GM Premix 50 ML IV.SIG SCH ×3 (12:20→23:32)
[2018-07-06] MEDS: Lactobacillus Acidophilus/L. Spores Tablet PO SCH ×2 (12:21→17:04)
[2018-07-06] MEDS ORDERED: Vancomycin Inj 1,000 MG in Sodium Chlor 0.9% Inj 250 ML IV.SIG SCH (13:00)
--- NOTE | 2018-07-06 14:28 | P.CONID ---
History of Present Illness Service: ID Consult date: 07/06/18 Requesting Physician: Seinna Stanton Reason for Consult: sepsis, UTI Primary Care Provider: Allan Knight MD Family Provider: Allan Knight MD Chief Complaint: Nausea, vomiting and generalized malaise History of Present Illness: 53 yo F with a h/o has an extensive history of urological problems apparently started at the time of [employer] surgery. She has a h/o bilateral stent placements in her ureters and eventually underwent a bilateral reimplantation of both ureters in 2009. Since that time patient has been asymptomatic without any urological issues. She reports recent abx use (within 1 month) for a dental issue, however can t recall the name. SHe reports infrequent 1-2 x/year UTIs Pt presented to the ED Tue with complaints of nausea, vomiting and generalized malaise x 3 days with inability to keep anything down by mouth. She reported fever of 103 at home as well as nausea and vomiting times [address] abd showed perinephric streakiness in an thickening of the wall the right collecting system and ureter, nonobstructing calculi b/l Pt presented in [place], with fever and Leukocytosis of 18 K, UA with grossly infected urine: innumerable WBC and bacteria present Pt was started on vancomycin, zosyn Blood clx were growing GNBs in both sets, ID'd as E.coli. Resistance markers all negative Pt reports cvlincial improvem,ment ALso her GFR slowly improved She was still c/o nausea, vomiting at the time of the exam, however. WBC went down to 14 K Review of Systems All other systems reviewed negative except as stated in HPI PMFSH - History History Provided By: Patient - Medical History Medical History: Medical History (Last Reviewed 07/06/18 @ 14:28 by Queenie Vela MD) Asthma Bilateral ureteral duplication GERD (gastroesophageal reflux disease) H/O: hysterectomy Hypertension Obstruction of both ureters - Family History Family History: Family History (Last Reviewed 07/06/18 @ 14:28 by Queenie Vela MD) Mother Breast cancer - Social History I have reviewed the patient's Social History: Yes - Tobacco History Second Hand Smoke Exposure: No Tobacco Use In Past 30 Days: No Smoking Status: Former smoker - Alcohol History How Often Do You Have a Drink Containing Alcohol: 2 to 4 times a month - Substance Use History Substance History: No History of Abuse - Travel History Recent Travel in the [place] Within the Last 8 Weeks: No Recent Travel Out of the Country Within the Last 8 Weeks: No - Immunization History Tetanus Immunization: Unsure Hx Influenza Vaccine This Season: No Medications and Allergies Active Medications: Active Medications Acetaminophen (Tylenol) 500 mg PO Q6H PRN PRN Reason: FEVER Last Admin: 07/05/18 17:16 Dose: 500 mg Al Hydroxide/Mg Hydroxide (Milk Of Anuradha Liq) 30 ml PO Q12H PRN PRN Reason: Mild Constipation Albuterol (Ventolin Hfa Inh) 2 puff INH Q6H PRN PRN Reason: Shortness Of Breath Fluoxetine HCl (Prozac) 20 mg PO DAILY [facility] Last Admin: 07/06/18 09:07 Dose: 20 mg Heparin Sodium (Porcine) (Heparin Inj) 5,000 units SQ Q12H MAGNO Last Admin: 07/06/18 04:49 Dose: 5,000 units Sodium Chloride (Ns Inj) 1,000 mls @ 0 mls/hr IV.SIG BOLUS MAGNO Potassium Chloride/Sodium Chloride (Ns + Kcl 20 Meq Inj) 1,000 mls @ 84 mls/hr IV.CONT .[id number] [facility] Last Admin: 07/06/18 12:19 Dose: 84 mls/hr Piperacillin/Tazobactam/Dextrose (Zosyn 3.375 Gm Premix) 50 mls @ 100 mls/hr IV.SIG Q6H [facility] Last Infusion: 07/06/18 13:39 Dose: Infused Calcium Chloride 1 gm/ Sodium (Chloride) 110 mls @ 110 mls/hr IV.SIG ONCE ONE Stop: 07/06/18 15:59 Levofloxacin/Dextrose (Levaquin 750 Mg Premix Inj) 150 mls @ 100 mls/hr IV.SIG Q24H MAGNO Levofloxacin/Dextrose (Levaquin 500 Mg Premix Inj) 500 mg in 100 mls @ 100 mls/ hr IV.SIG Q48H MAGNO Lactobacillus Acidophilus (Lactinex) 1 tab PO TID [facility] Last Admin: 07/06/18 12:21 Dose: 1 tab Morphine Sulfate (Morphine Inj) 2 mg IV.PUSH Q4H PRN PRN Reason: BREAKTHROUGH PAIN Last Admin: 07/06/18 04:47 Dose: 2 mg Oxycodone/Acetaminophen (Percocet 10/325 Mg) 1 tab PO Q4H PRN PRN Reason: Pain 7 to 10 Oxycodone/Acetaminophen (Percocet 5/325 Mg) 1 tab PO Q4H PRN PRN Reason: Pain 3 to 6 Last Admin: 07/06/18 12:48 Dose: 1 tab Promethazine HCl (Phenergan) 25 mg PO Q4H PRN PRN Reason: NAUSEA OR VOMITING Last Admin: 07/06/18 12:48 Dose: 25 mg Sodium Chloride (Ns Flush) 2 ml IV.FLUSH PRN PRN PRN Reason: FLUSH AFTER USING IV ACCESS Temazepam (Restoril) 7.5 mg PO HS PRN PRN Reason: INSOMNIA Allergies Allergy/AdvReac Type Severity Reaction Status Date / Time diatrizoate meglumine Allergy Unknown Rash, Verified 07/05/18 14:45 Generalized gadobenic acid Allergy Unknown Rash, Verified 07/05/18 14:45 Generalized gadodiamide Allergy Unknown Generalized Verified 07/05/18 14:45 Rash gadoteridol Allergy Unknown Rash, Verified 07/05/18 14:45 Generalized iodixanol Allergy Unknown Generalized Verified 07/05/18 14:45 Rash iohexol Allergy Unknown Generalized Verified 07/05/18 14:45 Rash Home Medications Medication Instructions Recorded Confirmed Type albuterol sulfate 2 puff INHALATION Q4-6H PRN 07/05/18 07/05/18 History alprazolam [Xanax] 0.25 mg PO TID PRN 07/05/18 07/05/18 History fluoxetine 20 mg PO DAILY 07/05/18 07/05/18 History losartan-hydrochlorothiazide 1 tab PO DAILY 07/05/18 07/05/18 History ranitidine HCl 150 mg PO BID 07/05/18 07/05/18 History Exam Vital signs: Vital Signs 07/05/18 15:00 07/05/18 15:52 07/05/18 17:02 Temperature 101.3 F H Pulse Rate 100 H 96 H Respiratory Rate 16 18 Blood Pressure 109/60 115/75 Pulse Oximetry 94 L 97 07/05/18 18:54 07/05/18 20:00 07/06/18 00:00 Temperature 99.5 F 99 F 99.8 F H Pulse Rate 91 H 96 H Respiratory Rate 20 20 Blood Pressure 125/67 125/70 Pulse Oximetry 95 97 07/06/18 04:00 07/06/18 08:00 07/06/18 12:00 Temperature 96.3 F L 98.5 F 99.6 F Pulse Rate 92 H 94 H 99 H Respiratory Rate 20 20 20 Blood Pressure 144/83 H 145/82 H 98/69 L Pulse Oximetry 100 95 97 07/06/18 13:38 Temperature Pulse Rate Respiratory Rate 20 Blood Pressure Pulse Oximetry Intake & Output 07/05/18 07/06/18 07/06/18 18:59 06:59 18:59 Intake Total 2099 1380 / 1380 300 / 300 Balance 2099 1380 / 1380 300 / 300 Weight 79.6 kg 80 kg Intake: IV 2099 / 2099 900 / 900 300 / 300 NS Inj 1,000 ML @ 100 mls/hr IV 800 / 800 .CONT .Q10H MAGNO Rx#:[id number] Zosyn 3.375 GM Premix 50 ML @ 50 / 50 100 mls/hr IV.SIG Q6H MAGNO Rx#: [id number] KCl 20 mEq Premix Inj 20 meq In 100 / 100 100 ml @ 50 mls/hr IV.SIG ONCE ONE Rx#:[id number] NS Inj 1,000 ML @ Wide Open IV. 1999 / 1999 SIG BOLUS ONE Rx#:[id number] Vancomycin Inj 1,000 MG In NS 250 / 250 Inj 250 ML @ 250 mls/hr IV.SIG Q24H MAGNO Rx#:[id number] Rocephin Inj 1,000 MG In NS Inj 100 / 100 100 ML @ 200 mls/hr IV.SIG ONCE ONE Rx#:[id number] Oral 480 / 480 Other: # Voids 4 - Constitutional no acute distress, obese - Routine HEENT Exam Head: Present: normocephalic, atraumatic Eye: Present: EOMI, PERRL ENT: Present: mucous membranes moist, oropharynx clear - Routine Neck Exam Present: supple. Absent: JVD - Routine Respiratory Exam Present: CTA bilaterally. Absent: accessory muscle use, decreased breath sounds , respiratory distress, rhonchi - Routine Cardiovascular Exam Present: RRR, S1, S2. Absent: murmur, gallop, rubs - Routine Abdominal Exam Present: soft, normoactive bowel sounds, tenderness (LLQ) - Routine Extremities Exam Present: normal capillary refill. Absent: cyanosis, clubbing, edema Comments: 2/2 pulses, - Routine Back/Spine/Pelvis Exam Back/Spine: Present: CVA tenderness (L side) - Routine Skin Exam Present: warm. Absent: cyanosis - Routine Neurological Exam Present: alert, oriented X3, CN II-XII intact, moving all extremities, hearing grossly intact, facial asymmetry, normal speech - Routine Psychiatric Exam Present: normal affect, normal thought process, cooperative Results - Labs CBC & Chem 7: 07/06/18 09:15 07/06/18 09:15 Labs: Laboratory Results - last 24 hr 07/05/18 07/05/18 07/05/18 14:10 21:00 21:00 CBC w Diff WBC RBC Hgb Hct MCV MCH MCHC RDW Plt Count MPV Neut % (Auto) Lymph % (Auto) [place] % (Auto) Eos % (Auto) Baso % (Auto) Neut # (Auto) Lymph # (Auto) [place] # (Auto) Eos # (Auto) Baso # (Auto) WBC Differential Differential Comment Sodium Potassium Chloride Carbon Dioxide Anion Gap BUN Creatinine Estimated GFR Random Glucose Lactic Acid 1.0 Calcium Prot Corrected Calcium Magnesium Total Bilirubin 0.6 Direct Bilirubin 0.2 Indirect Bilirubin 0.4 AST 25 ALT 26 Alkaline Phosphatase 60 Total Protein 7.1 Albumin 2.8 L Ur Collection Type Clean catch Urine Color Yellow Urine Clarity Slightly cloudy Urine pH 7.5 Ur Specific [place] 1.010 Urine Protein 300 or greater H Urine Glucose (UA) Negative Urine Ketones Trace H Urine Occult Blood Large H Urine Nitrate Negative Urine Bilirubin Negative Urine Urobilinogen 0.2 Ur Leukocyte Esterase Large H Urine RBC 15-50 H Urine WBC Innumerable H Urine WBC Clumps Moderate H Ur Squamous Epith Cells 6-10 H Ur Renal Epithelial Cell 1-5 H Urine Bacteria Many H Micro UA Comment Culture indicated Ur Microscopic Review Microscopic reviewed Urine Culture Comments Culture indicated 07/06/18 07/06/18 09:15 09:15 CBC w Diff Auto diff final WBC 14.5 H RBC 4.43 Hgb 13.5 Hct 39.3 MCV 88.7 MCH 30.5 MCHC 34.3 RDW 13.7 Plt Count 181 MPV 9.4 Neut % (Auto) 93.9 H Lymph % (Auto) 2.9 L [place] % (Auto) 3.0 Eos % (Auto) 0.1 Baso % (Auto) 0.1 Neut # (Auto) 13.7 H Lymph # (Auto) 0.4 L [place] # (Auto) 0.4 Eos # (Auto) 0.0 Baso # (Auto) 0.0 WBC Differential . Differential Comment . Sodium 136 Potassium 3.0 L Chloride 100 Carbon Dioxide 23.3 Anion Gap 13 BUN 14 Creatinine 1.70 H Estimated GFR 31 L Random Glucose 129 H Lactic Acid Calcium 7.4 L* D Prot Corrected Calcium 7.4 L* Magnesium 2.0 Total Bilirubin Direct Bilirubin Indirect Bilirubin AST ALT Alkaline Phosphatase Total Protein 7.2 Albumin Ur Collection Type Urine Color Urine Clarity Urine pH Ur Specific [place] Urine Protein Urine Glucose (UA) Urine Ketones Urine Occult Blood Urine Nitrate Urine Bilirubin Urine Urobilinogen Ur Leukocyte Esterase Urine RBC Urine WBC Urine WBC Clumps Ur Squamous Epith Cells Ur Renal Epithelial Cell Urine Bacteria Micro UA Comment Ur Microscopic Review Urine Culture Comments - Imaging Impressions Abdomen/Bladder Ultrasound 07/06/18 00:00 CONCLUSION: 1. Mild dilatation of both collecting systems 2. Nonobstructing stone lower pole left kidney. Abdomen/Pelvis CT 07/06/18 00:29 CONCLUSION: 1. Perinephric streakiness in an thickening of the wall the right collecting system and ureter are noted raising possibility of recently passed calculus or infectious/inflammatory process of the right urinary system. No obstructing calculus is noted on the right. There are multiple tiny calcified nonobstructing bilateral renal calculi which are stable. The largest calculus is noted on the left within the lower pole and measures 14 mm. Cortical scarring is noted probably on the left. 2. Hepatomegaly. 3. Stable ventral abdominal wall hernia containing only fat. 4. Uncomplicated colonic diverticulosis. 5. Stable right adnexal mass measuring 4.4 x 4.7 x 3.7 cm consistent with enlarged right ovary. There is minimal prominence of the left ovary also. 6. Grade I anterolisthesis of L5 in relation to S1 is noted. 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 Degenerative changes and scoliosis of the thoracolumbar spine are noted. Assessment and Plan - Plan A: E.coli sepsis 2/2 UTI E.coli UTI, R side pyelonephrtis Non obstructive nephrolithiasis P: cont zosyn add levaquin dc vanco will follow clx untill final will folllow clinically dw with Ms Stanton
--- NOTE | 2018-07-06 14:35 | P.PNADD ---
Addendum to Inpatient Note Additional information: Pt was seen and examined Briefely: Sepsis, E.coli 2/2 UTI no resistace markers cont zosyn add giuliano delacruz with Ms Stanton
[2018-07-06] MEDS ORDERED: Levofloxacin 500 mg Premix Inj 500 MG/100 ML PIGGYBACK IV.SIG SCH (15:00)
[2018-07-06] MEDS ORDERED: Calcium Chloride Inj 1 GM in Sodium Chlor 0.9% Inj 100 ML IV.SIG ONE (15:00)
[2018-07-06] MEDS: Acetaminophen 500 MG Tablet PO PRN (17:04)
[2018-07-07] MEDS: Heparin - SQ 10,000 UNITS/ML Vial SQ SCH ×2 (04:10→17:32)
[2018-07-07] MEDS: Piperacil/Tazo 3.375 GM Premix 50 ML IV.SIG SCH ×4 (05:54→23:32)
--- NOTE | 2018-07-07 08:26 | P.PNIM ---
Subjective Interval history: Follow-up UTI, sepsis and bacteremia. Patient seen and examined, lying in bed comfortably no apparent distress. Patient states that her pain is well controlled. She is urinating well without any dysuria. Patient is tolerating p.o. intake without any nausea or vomiting. Patient low-grade fevers overnight. Vital signs are stable. Still awaiting blood cultures. Physical Exam Vital signs: Vital Signs 07/06/18 12:00 07/06/18 13:38 07/06/18 16:00 Temperature 99.6 F 100.4 F H Pulse Rate 99 H 88 Respiratory Rate 20 20 20 Blood Pressure 98/69 L 105/79 Pulse Oximetry 97 97 07/06/18 20:00 07/07/18 00:00 07/07/18 04:00 Temperature 100.2 F H 99 F 100 F H Pulse Rate 85 89 90 Respiratory Rate 20 20 20 Blood Pressure 134/75 122/71 125/70 Pulse Oximetry 96 97 96 Intake & Output 07/06/18 07/07/18 07/07/18 18:59 06:59 18:59 Intake Total 1560 / 1560 2100 / 2100 Balance 1560 / 1560 2100 / 2100 Weight 81.3 kg Intake: IV 1560 / 1560 1100 / 1100 NS + KCl 20 mEq Inj 1,000 ML @ 1000 / 1000 84 mls/hr IV.CONT .[id number] MAGNO Rx#:[id number] NS Inj 1,000 ML @ 100 mls/hr IV 1000 / 1000 .CONT .Q10H MAGNO Rx#:[id number] Calcium Chloride Inj 1 GM In NS 110 / 110 Inj 100 ML @ 110 mls/hr IV.SIG ONCE ONE Rx#:[id number] Levaquin 500 mg Premix Inj 500 100 / 100 mg In 100 ml @ 100 mls/hr IV. SIG Q48H MAGNO Rx#:[id number] Zosyn 3.375 GM Premix 50 ML @ 100 / 100 100 / 100 100 mls/hr IV.SIG Q6H MAGNO Rx#: [id number] Vancomycin Inj 1,000 MG In NS 250 / 250 Inj 250 ML @ 250 mls/hr IV.SIG Q24H MAGNO Rx#:[id number] Oral 1000 / 1000 Other: # Voids 5 4 Narrative: GENERAL: Well-developed, well-nourished patient lying in bed comfortably. SKIN: Warm and dry. No rash. HEAD: Normocephalic. Atraumatic. EYES: Pupils equal and round. No scleral icterus. No injection or drainage. ENT: No nasal bleeding or discharge. Mucous membranes pink and moist. NECK: Supple. Trachea midline. CARDIOVASCULAR: Regular rate and rhythm. S1, S2 noted. No murmur appreciated. RESPIRATORY: No accessory muscle use. Clear to auscultation. Breath sounds equal bilaterally. GASTROINTESTINAL: Abdomen soft, nondistended. Normoactive bowel sounds x4. Tenderness especially in mid epigastric area. : Bilateral CVA tenderness. Worse on left. MUSCULOSKELETAL: No obvious deformities. Extremities without clubbing, cyanosis , or edema. NEUROLOGICAL: Awake and alert. No obvious cranial nerve deficits. Motor grossly within normal limits. 5/5 muscle strength in bilateral upper and lower extremities. Normal speech. PSYCHIATRIC: Appropriate mood and affect; insight and judgment normal. Results - Labs CBC & Chem 7: 07/06/18 09:15 07/06/18 09:15 Laboratory Results - last 24 hr 07/05/18 07/06/18 07/06/18 14:10 09:15 09:15 CBC w Diff Auto diff final WBC 14.5 H RBC 4.43 Hgb 13.5 Hct 39.3 MCV 88.7 MCH 30.5 MCHC 34.3 RDW 13.7 Plt Count 181 MPV 9.4 Neut % (Auto) 93.9 H Lymph % (Auto) 2.9 L [place] % (Auto) 3.0 Eos % (Auto) 0.1 Baso % (Auto) 0.1 Neut # (Auto) 13.7 H Lymph # (Auto) 0.4 L [place] # (Auto) 0.4 Eos # (Auto) 0.0 Baso # (Auto) 0.0 WBC Differential . Differential Comment . Sodium 136 Potassium 3.0 L Chloride 100 Carbon Dioxide 23.3 Anion Gap 13 BUN 14 Creatinine 1.70 H Estimated GFR 31 L Random Glucose 129 H Calcium 7.4 L* D Prot Corrected Calcium 7.4 L* Magnesium 2.0 Total Protein 7.2 Ur Collection Type Clean catch Urine Color Yellow Urine Clarity Slightly cloudy Urine pH 7.5 Ur Specific [place] 1.010 Urine Protein 300 or greater H Urine Glucose (UA) Negative Urine Ketones Trace H Urine Occult Blood Large H Urine Nitrate Negative Urine Bilirubin Negative Urine Urobilinogen 0.2 Ur Leukocyte Esterase Large H Urine RBC 15-50 H Urine WBC Innumerable H Urine WBC Clumps Moderate H Ur Squamous Epith Cells 6-10 H Ur Renal Epithelial Cell 1-5 H Urine Bacteria Many H Micro UA Comment Culture indicated Ur Microscopic Review Microscopic reviewed Urine Culture Comments Culture indicated Microbiology 07/05/18 14:10 Clean Catch Urine Urine Culture - Preliminary gram negative rods 07/05/18 14:30 Blood - Peripheral Aerobic Blood Culture - Preliminary No growth in 1 day 07/05/18 14:30 Blood - Peripheral Anaerobic Blood Culture - Preliminary Escherichia coli 07/05/18 14:30 Blood - Peripheral Aerobic Blood Culture - Preliminary gram negative rods 07/05/18 14:30 Blood - Peripheral Anaerobic Blood Culture - Preliminary gram negative rods - Imaging Impressions Abdomen/Bladder Ultrasound 07/06/18 00:00 CONCLUSION: 1. Mild dilatation of both collecting systems 2. Nonobstructing stone lower pole left kidney. Abdomen/Pelvis CT 07/06/18 00:29 CONCLUSION: 1. Perinephric streakiness in an thickening of the wall the right collecting system and ureter are noted raising possibility of recently passed calculus or infectious/inflammatory process of the right urinary system. No obstructing calculus is noted on the right. There are multiple tiny calcified nonobstructing bilateral renal calculi which are stable. The largest calculus is noted on the left within the lower pole and measures 14 mm. Cortical scarring is noted probably on the left. 2. Hepatomegaly. 3. Stable ventral abdominal wall hernia containing only fat. 4. Uncomplicated colonic diverticulosis. 5. Stable right adnexal mass measuring 4.4 x 4.7 x 3.7 cm consistent with enlarged right ovary. There is minimal prominence of the left ovary also. 6. Grade I anterolisthesis of L5 in relation to S1 is noted. 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 Degenerative changes and scoliosis of the thoracolumbar spine are noted. Assessment and Plan - Assessment (1) Sepsis Code(s): A41.9 - Sepsis, unspecified organism Status: Acute (2) Pyelonephritis Code(s): N12 - Tubulo-interstitial nephritis, not specified as acute or chronic Status: Acute - Plan This is a 53-year-old female patient with: Sepsis Pyelonephritis Acute kidney injury suspect secondary to above, improving History of bilateral ureter stents as well as bilateral ureteral reimplantation -Patient presented with a 3-day history of nausea, vomiting and generalized malaise. -Met sepsis criteria with fever 101.3, tachycardiac, leukocytosis with WBC of 18 ,000 and possible source urinary tract. Lactic acid 1.0. -UA showing large amount of leukocyte esterase and WBC. Urine culture growing E. coli. Blood cultures positive x3 bottles for gram-negative rods. Awaiting final growth. -Placed on Levaquin and Zosyn. Infectious disease following. Appreciate input recommendations. -Was given 2 L NS bolus in ED. Continue IVF. Ensure hydration. -Avoid nephrotoxins. -Creatinine 2.0 upon presentation. This has improved. Awaiting labs today. -Pain control with oxycodone as needed per pain scale as well as Morphine IV available per pain scale. -Renal US unremarkable. Abdominal/pelvis CT reviewed showing findings for perinephritic scarring as well as multiple tiny nonobstructing stones in the left lower pole of the kidney. Spoke to urologist inside phone sales who will recommend follow up with Dr. Florian outpatient. Adnexal mass Enlarged right ovary -Abdominal/pelvis CT incidentally showing right adnexal mass consistent with enlarged right ovary. -Stable. Will have patient follow-up outpatient. Hypokalemia: Replenish as ordered. Follow labs. Hypertension, chronic: Continue home medications. Monitor BP trends. Monitor for hypotension. Hepatomegaly: Patient has been undergoing outpatient workup although has not gotten her labs for hepatitis. Will add to panel. Follow. LFTs WNL. DVT prophylaxis: SCDs. Heparin. Discharge Planning: Awaiting repeat blood culture growth and clinical improvement. Expect 1-2 days for discharge. (1) Sepsis Qualifiers: Sepsis type: sepsis due to unspecified organism Qualified Code(s): A41.9 - Sepsis, unspecified organism
[2018-07-07] MEDS: Lactobacillus Acidophilus/L. Spores Tablet PO SCH ×3 (08:47→17:32)
[2018-07-07] MEDS: FLUoxetine 20 MG Capsule PO SCH (08:48)
[2018-07-07 12:46] LABS: Potassium 3.4 meq/L (3.5-5.1)
[2018-07-07 12:51] LABS: Calcium 7.8 mg/dL (8.5-10.1)
[2018-07-07 12:52] LABS: Carbon Dioxide 21.9 meq/L (21.0-32.0)
[2018-07-07 15:41] LABS: Hepatitis A IgM Antibody Nonreactive (Nonreactive); Hepatitits B Surface Antigen Nonreactive (Nonreactive)
[2018-07-07] MEDS: oxyCODONE/Acetaminophen 10/325 Tablet PO PRN ×2 (19:34→23:38)
[2018-07-08] MEDS: Heparin - SQ 10,000 UNITS/ML Vial SQ SCH ×2 (02:49→03:00)
[2018-07-08 03:50] VITALS: O2SAT 98
[2018-07-08] MEDS: oxyCODONE/Acetaminophen 10/325 Tablet PO PRN (05:05)
[2018-07-08] MEDS: Piperacil/Tazo 3.375 GM Premix 50 ML IV.SIG SCH ×2 (05:06→13:20)
--- NOTE | 2018-07-08 07:43 | P.DS ---
Date of admission: 07/05/18 14:46 Primary care physician: Allan Knight MD Brief History from admission: This is a 53-year-old female patient with a known medical history of hypertension who presented to the ED with complaints of nausea, vomiting and generalized malaise x 3 days. Patient does state that she had a subjective fever of 103 at home as well as nausea and vomiting times 3 days, with inability to keep anything down by mouth. She states that her emesis is green and yellow in color. She denies any recent cough, chest pain, shortness of breath, diarrhea or or dysuria. Patient has an extensive history of neurological problems. Patient states that she followed with Dr. Florian, urologist roughly 8 years ago. At that time she did have bilateral stent placements in her ureters and eventually underwent a bilateral reimplantation of both ureters in 2009. Since that time patient has been asymptomatic without any urological issues. It should be noted that patient had a tooth extraction several weeks ago and did complete a course of antibiotics although patient is unaware of name of these. Patient sees PCP, Dr. Knight, last seen a week ago , states that she was told she had hepatomegaly and was ordered for blood work and hepatitis workup although patient has been unable to get this workup secondary to feeling so sick the past several days. Patient does admit to a history of asthma has been controlled with albuterol sulfate at home. At the time of assessment today patient is very uncomfortable, lying in bed complaining of her abdomen aching especially in her midepigastric area as well as bilateral CVA tenderness. Patient does meet sepsis criteria, febrile, tachycardia, leukocytosis and UTI. Awaiting abdominal CT as well as kidney ultrasound. Sepsis workup in place. Patient update on day of discharge: Follow-up bacteremia and UTI. Patient seen and examined, lying in bed comfortably no apparent distress. Much improved today. Afebrile overnight. Vital signs stable. Will discharge home today with ID antibiotic recommendations. Blood cultures negative times 2 days. DS: Diagnosis - Discharge Diagnosis (1) Sepsis Status: Acute (2) Pyelonephritis Status: Acute DS: Medications - Discharge Medications Prescriptions: levofloxacin [Levaquin] 500 mg PO DAILY 7 Days #7 tab DS: Summary Hospital Course: This is a 53-year-old female patient who presented with sepsis secondary to pyelonephritis, had acute kidney injury suspect secondary to above. Patient does have a history of bilateral ureter stents as well as bilateral ureteral reimplantation. Patient presented with a 3-day history of nausea, vomiting and generalized malaise. Met sepsis criteria with fever 101.3, tachycardiac, leukocytosis with WBC of 18,000 and possible source urinary tract. Lactic acid 1.0. UA showing large amount of leukocyte esterase and WBC. Urine culture growing E. coli. Blood cultures positive x3 bottles for gram-negative rods. Repeat blood cultures negative to date. Placed on Levaquin and Zosyn. Infectious disease followed during hospitalization. Was given 2 L NS bolus in ED. Continued on IVF. Creatinine 2.0 upon presentation, improved upon Dc. Pain control with oxycodone as needed per pain scale as well as Morphine IV available per pain scale during hospitalization. Renal US unremarkable. Abdominal/pelvis CT reviewed showing findings for perinephritic scarring as well as multiple tiny nonobstructing stones in the left lower pole of the kidney. Spoke to urologist puff ironer who will recommend follow up with Dr. Florian outpatient. An adnexal mass and enlarged right ovary was seen incidentally on abdominal/pelvis CT. Right adnexal mass consistent with enlarged right ovary. Explained to patient extensively about need for follow up outpatient. Agrees to follow up. Also had hypokalemia, was replenished. Hx of hypertension which was stable. Patient also had hepatomegaly: Patient has been undergoing outpatient workup although has not gotten her labs for hepatitis. Hepatitis negative. LFTs WNL. Patient improved upon day of dc. Doing well. ID cleared for DC with recs. Will have patient follow up PCP. - Time Spent with Patient Total time spent providing and/or coordinating discharge services: Greater than 30 minutes - Quality: VTE Deep Vein Thrombosis/Pulmonary Embolism Present on Admission: No Exam Vital signs: Vital Signs 07/07/18 08:00 07/07/18 12:00 07/07/18 16:00 Temperature 99.3 F 97.8 F 97.9 F Pulse Rate 84 84 79 Respiratory Rate 20 20 20 Blood Pressure 119/72 128/74 122/70 Pulse Oximetry 95 96 96 07/07/18 20:00 07/08/18 00:00 07/08/18 03:49 Temperature 97.9 F 97.8 F 97.6 F Pulse Rate 74 74 68 Respiratory Rate 16 16 16 Blood Pressure 119/71 109/70 125/73 Pulse Oximetry 96 96 98 Intake & Output 07/07/18 07/08/18 07/08/18 18:59 06:59 18:59 Intake Total 1100 / 1100 1100 / 1100 Balance 1100 / 1100 1100 / 1100 Weight 82.4 kg Intake: IV 1100 / 1100 1100 / 1100 NS + KCl 20 mEq Inj 1,000 ML @ 1000 / 1000 1000 / 1000 84 mls/hr IV.CONT .[id number] MAGNO Rx#:[id number] Zosyn 3.375 GM Premix 50 ML @ 100 / 100 100 / 100 100 mls/hr IV.SIG Q6H MAGNO Rx#: [id number] Other: # Voids 4 2 Date of Last Bowel Movement 07/06/18 07/06/18 # Bowel Movements 1 Narrative: GENERAL: Well-developed, well-nourished patient lying in bed comfortably. SKIN: Warm and dry. No rash. HEAD: Normocephalic. Atraumatic. EYES: Pupils equal and round. No scleral icterus. No injection or drainage. ENT: No nasal bleeding or discharge. Mucous membranes pink and moist. NECK: Supple. Trachea midline. CARDIOVASCULAR: Regular rate and rhythm. S1, S2 noted. No murmur appreciated. RESPIRATORY: No accessory muscle use. Clear to auscultation. Breath sounds equal bilaterally. GASTROINTESTINAL: Abdomen soft, nondistended. Normoactive bowel sounds x4. : Bilateral CVA tenderness. Worse on left. MUSCULOSKELETAL: No obvious deformities. Extremities without clubbing, cyanosis , or edema. NEUROLOGICAL: Awake and alert. No obvious cranial nerve deficits. Motor grossly within normal limits. 5/5 muscle strength in bilateral upper and lower extremities. Normal speech. PSYCHIATRIC: Appropriate mood and affect; insight and judgment normal. Results Procedures completed during hospitalization: See below. Labs on day of discharge: Labs from last 24 hours 07/07/18 07/07/18 08:00 08:00 Sodium 138 Potassium 3.4 L Chloride 107 Carbon Dioxide 21.9 Anion Gap 9 BUN 15 Creatinine 1.40 H Estimated GFR 39 L Random Glucose 91 Calcium 7.8 L Hepatitis A IgM Ab Nonreactive Hep Bs Antigen Nonreactive Hep B Core IgM Ab Nonreactive Hep C IgG Ab Nonreactive Preliminary micro results at discharge 07/06/18 09:15 Aerobic Blood Culture - Preliminary Blood - Peripheral No growth in 1 day Anaerobic Blood Culture - Preliminary No growth in 1 day 07/06/18 09:05 Aerobic Blood Culture - Preliminary Blood - Peripheral No growth in 1 day Anaerobic Blood Culture - Preliminary No growth in 1 day 07/05/18 14:30 Aerobic Blood Culture - Preliminary Blood - Peripheral Escherichia coli Anaerobic Blood Culture - Preliminary Escherichia coli 07/05/18 14:30 Aerobic Blood Culture - Preliminary Blood - Peripheral gram negative rods Anaerobic Blood Culture - Preliminary Escherichia coli - Impressions ITS Impressions Abdomen/Bladder Ultrasound 07/06/18 00:00 CONCLUSION: 1. Mild dilatation of both collecting systems 2. Nonobstructing stone lower pole left kidney. Abdomen/Pelvis CT 07/06/18 00:29 CONCLUSION: 1. Perinephric streakiness in an thickening of the wall the right collecting system and ureter are noted raising possibility of recently passed calculus or infectious/inflammatory process of the right urinary system. No obstructing calculus is noted on the right. There are multiple tiny calcified nonobstructing bilateral renal calculi which are stable. The largest calculus is noted on the left within the lower pole and measures 14 mm. Cortical scarring is noted probably on the left. 2. Hepatomegaly. 3. Stable ventral abdominal wall hernia containing only fat. 4. Uncomplicated colonic diverticulosis. 5. Stable right adnexal mass measuring 4.4 x 4.7 x 3.7 cm consistent with enlarged right ovary. There is minimal prominence of the left ovary also. 6. Grade I anterolisthesis of L5 in relation to S1 is noted. 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 Degenerative changes and scoliosis of the thoracolumbar spine are noted. Discharge Plan - Discharge Disposition Patient Disposition: 01 Discharge Home - Discharge Condition Condition: Stable - Discharge Order Discharge Orders: Discharge Order (Routine); Ordered 07/08/18 Ordered By: Sienna Stanton - Discharge Details Anticipated Discharge Date: 07/08/18 - Physicians Team Primary Care Provider: Allan Knight Attending Provider: Jed Vaughan Other Providers: [employer]urance ; Queenie Vela MD
[2018-07-08] MEDS: Lactobacillus Acidophilus/L. Spores Tablet PO SCH (08:05)
[2018-07-08] MEDS: FLUoxetine 20 MG Capsule PO SCH (08:06)
[2018-07-08 08:51] VITALS: BP 145/79; PULSE 69; TEMP 96.7
--- NOTE | 2018-07-08 11:01 | P.PNID ---
Subjective Remarks: pt is doing well afebrile feels good grew crouch S E.coli from the blood clx and from the urine clx Antibiotics: zosyn levaquin Allergies/Adverse Reactions: Allergies diatrizoate meglumine Allergy (Unknown, Verified 07/05/18 14:45) Rash, Generalized gadobenic acid Allergy (Unknown, Verified 07/05/18 14:45) Rash, Generalized gadodiamide Allergy (Unknown, Verified 07/05/18 14:45) Generalized Rash gadoteridol Allergy (Unknown, Verified 07/05/18 14:45) Rash, Generalized iodixanol Allergy (Unknown, Verified 07/05/18 14:45) Generalized Rash iohexol Allergy (Unknown, Verified 07/05/18 14:45) Generalized Rash Objective Vital Signs 07/07/18 12:00 07/07/18 16:00 07/07/18 20:00 Temperature 97.8 F 97.9 F 97.9 F Pulse Rate 84 79 74 Respiratory Rate 20 20 16 Blood Pressure 128/74 122/70 119/71 Pulse Oximetry 96 96 96 07/08/18 00:00 07/08/18 03:49 07/08/18 08:00 Temperature 97.8 F 97.6 F 96.7 F L Pulse Rate 74 68 69 Respiratory Rate 16 16 18 Blood Pressure 109/70 125/73 145/79 H Pulse Oximetry 96 98 98 Intake & Output 07/07/18 07/08/18 07/08/18 18:59 06:59 18:59 Intake Total 1100 / 1100 1100 / 1100 Balance 1100 / 1100 1100 / 1100 Weight 82.4 kg Intake: IV 1100 / 1100 1100 / 1100 NS + KCl 20 mEq Inj 1,000 ML @ 1000 / 1000 1000 / 1000 84 mls/hr IV.CONT .[id number] [facility]NO Rx#:[id number] Zosyn 3.375 GM Premix 50 ML @ 100 / 100 100 / 100 100 mls/hr IV.SIG Q6H [facility]NO Rx#: [id number] Other: # Voids 4 2 Date of Last Bowel Movement 07/06/18 07/06/18 # Bowel Movements 1 07/05/18 14:30 Blood - Peripheral Aerobic Blood Culture - Final Escherichia coli 07/05/18 14:30 Blood - Peripheral Anaerobic Blood Culture - Final Escherichia coli 07/05/18 14:30 Blood - Peripheral Aerobic Blood Culture - Final Escherichia coli 07/05/18 14:30 Blood - Peripheral Anaerobic Blood Culture - Final Escherichia coli 07/06/18 09:15 Blood - Peripheral Aerobic Blood Culture - Preliminary No growth in 1 day 07/06/18 09:15 Blood - Peripheral Anaerobic Blood Culture - Preliminary No growth in 1 day 07/06/18 09:05 Blood - Peripheral Aerobic Blood Culture - Preliminary No growth in 1 day 07/06/18 09:05 Blood - Peripheral Anaerobic Blood Culture - Preliminary No growth in 1 day 07/05/18 14:10 Clean Catch Urine Urine Culture - Final Escherichia coli Lab - Chemistry Results 07/06/18 07/07/18 09:15 08:00 Sodium 136 138 Potassium 3.0 L 3.4 L Chloride 100 107 Carbon Dioxide 23.3 21.9 Anion Gap 13 9 BUN 14 15 Creatinine 1.70 H 1.40 H Estimated GFR 31 L 39 L Random Glucose 129 H 91 Calcium 7.4 L* D 7.8 L Prot Corrected Calcium 7.4 L* Magnesium 2.0 Total Protein 7.2 Imaging: ITS Impressions Abdomen/Bladder Ultrasound 07/06/18 00:00 CONCLUSION: 1. Mild dilatation of both collecting systems 2. Nonobstructing stone lower pole left kidney. Abdomen/Pelvis CT 07/06/18 00:29 CONCLUSION: 1. Perinephric streakiness in an thickening of the wall the right collecting system and ureter are noted raising possibility of recently passed calculus or infectious/inflammatory process of the right urinary system. No obstructing calculus is noted on the right. There are multiple tiny calcified nonobstructing bilateral renal calculi which are stable. The largest calculus is noted on the left within the lower pole and measures 14 mm. Cortical scarring is noted probably on the left. 2. Hepatomegaly. 3. Stable ventral abdominal wall hernia containing only fat. 4. Uncomplicated colonic diverticulosis. 5. Stable right adnexal mass measuring 4.4 x 4.7 x 3.7 cm consistent with enlarged right ovary. There is minimal prominence of the left ovary also. 6. Grade I anterolisthesis of L5 in relation to S1 is noted. 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 Degenerative changes and scoliosis of the thoracolumbar spine are noted. Physical Exam: GENERAL: NAD SKIN: Warm and dry. NO rash EYES: No scleral icterus. ENT: Mucous membranes pink and moist. CARDIOVASCULAR: Regular rate and rhythm. RESPIRATORY: No accessory muscle use. Clear to auscultation. Breath sounds equal bilaterally. GASTROINTESTINAL: Abdomen soft, non-tender, nondistended. Hepatic and splenic margins not palpable. MUSCULOSKELETAL: Extremities without clubbing, cyanosis, or edema. NEUROLOGICAL: Awake and alert. Non focal PSYCHIATRIC:calm, cooperative Assessment and Plan - Plan A: E.coli sepsis 2/2 UTI E.coli UTI, R side pyelonephrtis Non obstructive nephrolithiasis BARBARA - resolved P: dc zosyn cont levaquin 500 mg daily x 7 days Pt was instructed to report nasuea, vomiting, diarrhea, abd pain, bloating and achilles area tenderness Pt was informed on levaquin side effects including achilles tendinitis OK to dc home dw with Ms Stanton
[2018-07-08 12:03] LABS: Potassium 3.6 meq/L (3.5-5.1)
[2018-07-08 12:06] LABS: Calcium 7.5 mg/dL (8.5-10.1)
[2018-07-08 12:39] VITALS: RESP 16
== END 2018-07-08 14:24 | disposition home or self-care (01) ==
LOC: PHED 12:38 → PHEDA 14:46 → PH3 16:13
PROVIDERS: ADMIT Internal Medicine; ATTEND Internal Medicine